=== PATIENT | female | born 1935 | race Caucasian/White ===

== ENCOUNTER 2016-07-15 09:12 | Outpatient (CLI) | payer MEDICARE, BC | END 2016-07-15 09:13 | disposition home or self-care (01) | DX: Z79.899 Other long term (current) drug therapy (principal); I50.9 Heart failure, unspecified ==

== ENCOUNTER 2016-07-22 16:30 | Outpatient (CLI) | payer MEDICARE, BC | END 2016-07-22 16:31 | disposition home or self-care (01) | DX: I10 Essential (primary) hypertension (principal); E78.5 Hyperlipidemia, unspecified; E03.9 Hypothyroidism, unspecified ==

== ENCOUNTER 2016-07-28 | Outpatient (CLI) | payer MEDICARE, BC | END 2016-07-28 13:01 | disposition home or self-care (01) ==

== ENCOUNTER 2016-08-27 13:30 | Outpatient (CLI) | payer MEDICARE, BC | END 2016-08-27 13:31 | disposition home or self-care (01) | DX: I10 Essential (primary) hypertension (principal) ==

== ENCOUNTER 2016-09-02 12:41 | Outpatient (CLI) | payer MEDICARE, BC | END 2016-09-02 12:42 | disposition home or self-care (01) | DX: I50.9 Heart failure, unspecified (principal); I50.30 Unspecified diastolic (congestive) heart failure; I35.8 Other nonrheumatic aortic valve disorders ==

== ENCOUNTER 2016-09-16 13:20 | Outpatient (CLI) | payer MEDICARE, BC | END 2016-09-16 13:21 | disposition home or self-care (01) | DX: I10 Essential (primary) hypertension (principal); Z79.899 Other long term (current) drug therapy ==

== ENCOUNTER 2016-10-12 10:15 | Outpatient (CLI) | payer MEDICARE, BC | END 2016-10-12 10:16 | disposition home or self-care (01) | DX: Z51.5 Encounter for palliative care (principal); R60.0 Localized edema; Z79.01 Long term (current) use of anticoagulants; R53.83 Other fatigue; I50.9 Heart failure, unspecified; M32.9 Systemic lupus erythematosus, unspecified; Z86.73 Personal history of transient ischemic attack (TIA), and cerebral infarction without residual deficits; G40.909 Epilepsy, unspecified, not intractable, without status epilepticus; E66.01 Morbid (severe) obesity due to excess calories; M17.0 Bilateral primary osteoarthritis of knee; K58.9 Irritable bowel syndrome, unspecified; F41.9 Anxiety disorder, unspecified; K44.9 Diaphragmatic hernia without obstruction or gangrene; E03.9 Hypothyroidism, unspecified; Z66 Do not resuscitate ==

== ENCOUNTER 2016-10-27 13:02 | Outpatient (CLI) | payer MEDICARE, BC | END 2016-10-27 13:03 | disposition critical access hospital (66) | DX: R00.0 Tachycardia, unspecified (principal); R03.0 Elevated blood-pressure reading, without diagnosis of hypertension | CPT/HCPCS: A0425; A0429 ==

== ENCOUNTER 2016-10-27 13:20 | Emergency (ER) | payer MEDICARE, BC | END 2016-10-27 15:06 | disposition home or self-care (01) | DX: R00.2 Palpitations (principal); I10 Essential (primary) hypertension; R60.0 Localized edema; M32.9 Systemic lupus erythematosus, unspecified; M06.9 Rheumatoid arthritis, unspecified; E03.9 Hypothyroidism, unspecified; Z79.01 Long term (current) use of anticoagulants; Z79.899 Other long term (current) drug therapy; I50.9 Heart failure, unspecified; Z86.73 Personal history of transient ischemic attack (TIA), and cerebral infarction without residual deficits ==

== ENCOUNTER 2016-11-07 05:55 | Outpatient (CLI) | payer MEDICARE, BC | END 2016-11-07 05:56 | disposition critical access hospital (66) | LOC: EMS 05:55 | PROVIDERS: ATTEND Surgery | DX: R06.02 Shortness of breath (principal) | CPT/HCPCS: A0425; A0429 ==

== ENCOUNTER 2016-11-07 06:10 | Emergency (ER) | payer MEDICARE, BC ==
[2016-11-07 07:10] LABS: BASOPHILS % (AUTO) 0.7 %; EOSINOPHILS # (AUTO) 0.1 10^3/uL (0.0-0.7); EOSINOPHILS % (AUTO) 1.6 %; HCT - HEMATOCRIT 31.6 % (37.0-47.0); HGB - HEMOGLOBIN 10.9 g/dL (12.0-16.0); LYMPHOCYTES # (AUTO) 0.6 10^3/uL (1.5-3.5); LYMPHOCYTES % (AUTO) 10.8 %; MEAN CORPUSCULAR HEMOGLOBIN 31.5 pg (27.0-31.0); MEAN CORPUSCULAR HGB CONC 34.5 g/dL (32.0-36.0); MEAN CORPUSCULAR VOLUME 91.2 fL (81.0-99.0); MEAN PLATELET VOLUME 7.9 fL (7.9-10.8); MONOCYTES # (AUTO) 0.6 10^3/uL (0.0-1.0); MONOCYTES % (AUTO) 11.1 %; NEUTROPHILS # (AUTO) 4.4 10^3/uL (1.5-6.6); NEUTROPHILS % (AUTO) 75.8 %; RED BLOOD COUNT 3.46 10^6/uL (4.20-5.40); RED CELL DISTRIBUTION WIDTH 13.8 % (12.0-15.0); UNCORRECTED WHITE BLOOD COUNT 5.8 x10^3/uL; WHITE BLOOD COUNT 5.8 x10^3/uL (4.8-10.8)
[2016-11-07 07:19] LABS: BILIRUBIN,TOTAL 0.4 mg/dL (0.2-1.0); CALCIUM 8.9 mg/dL (8.5-10.3); CREATININE 1.1 mg/dL (0.4-1.0); POTASSIUM 3.6 mmol/L (3.5-5.0); TOTAL PROTEIN 7.7 g/dL (6.7-8.2)
--- NOTE | 2016-11-07 07:39 | XRAY Preliminary Report ---
Exam: XR Chest 2 View PA/LAT IMPRESSION: Small left lower lobe airspace disease may be due to atelectasis, aspiration, or pneumoni aBarb LESLIE SITE ID: [id number]
[2016-11-07 07:42] LABS: PARTIAL THROMBOPLASTIN TIME 51.1 secs (24.9-33.3)
--- NOTE | 2016-11-07 07:42 | XRAY Report ---
EXAM: CHEST RADIOGRAPHY EXAM DATE: 11/07/2016 07:23 AM. CLINICAL HISTORY: Chest pain, dyspnea. COMPARISON: 06/14/2016. TECHNIQUE: 2 views. FINDINGS: Lungs/Pleura: There is left lower lobe airspace disease. No effusion or pneumothorax. Mediastinum: Mild enlargement of the cardiac silhouette. No definite pulmonary venous congestion. Other: Suspect hiatal hernia. IMPRESSION: Small left lower lobe airspace disease may be due to atelectasis, aspiration, or pneumoni a. [facility] Referring Provider Line: [phone] SITE ID: [id number]
[2016-11-07 07:49] LABS: INR 2.1 (0.8-1.2); PT - PROTHROMBIN TIME 23.3 secs (9.9-12.6)
--- NOTE | 2016-11-07 07:49 | ED Physician Documentation ---
PD HPI DYSPNEA - Stated complaint Stated Complaint: SOA - Chief complaint Chief Complaint: Resp - History obtained from History obtained from: Patient, EMS - History of Present Illness Timing - onset: Enter time (0500), Today Timing - onset during: Sleep Timing - duration: Hours Timing - details: Abrupt onset, Now resolved Inciting event(s): No: Out of meds, URI, Allergic rxn/anaphylaxis, Exercise, Exposure (ie smoke), FB / choking, Immobilization/travel, Emotional event Improved by: Rest, Sitting up Worsened by: Exertion Associated symptoms: Bilateral edema. No: Fever, Cough, Hemoptysis, Wheezing, Chest pain / discomfort, Palpitations, Diaphoresis Similar symptoms before: Diagnosis (CHF) Recently seen: Clinic (Seen in the clinic 3 days ago for a follow up from the recent ED visit.) - Additional information Additional information: 81 y/o female with a history of CHF awoke this morning acutely short of breath and could not get to the bathroom without significant dyspnea. She is now improved an hour after arrival to the ED and she feels this is partly due to getting rid of some water with urination. She reports that she is taking her lasix 20mg in the am and 10 in the afternoon. She reports that if she takes more than this she will itch and gain weight. She has a history of significant dehydration with torsimide and metazalone. She denies illness currently. She did have an episode of palpitations 2 weeks ago and was seen in the ED. She has a hiatal hernia and this episode was attributed to a heavy meal. She also reports the finding that it is difficult to get her shoes on in the morning with her feet being swollen. Review of Systems Constitutional: denies: Fever, Chills Eyes: denies: Decreased vision Ears: denies: Ear pain Nose: denies: Rhinorrhea / runny nose, Congestion Throat: denies: Sore throat Cardiac: reports: Palpitations, Pedal edema. denies: Chest pain / pressure, Calf pain Respiratory: reports: Dyspnea, Cough (on the way in to the hospital) GI: denies: Abdominal Pain, Nausea, Vomiting : reports: Frequency. denies: Dysuria Skin: denies: Rash Musculoskeletal: reports: Extremity swelling. denies: Neck pain, Back pain, Extremity pain Neurologic: denies: Generalized weakness, Focal weakness, Numbness PD PAST MEDICAL HISTORY - Past Medical History Cardiovascular: Hypertension, High cholesterol Respiratory: None, Shortness of breath Neuro: CVA, TIA, Head injury, Seizure disorder Endocrine/Autoimmune: HyPOthyroidism, Systemic lupus erythematosus GI: Hiatal hernia, Diverticulitis, Other : Renal insuffiency Musculoskeletal: Rheumatoid arthritis, Other - Past Surgical History Past Surgical History: Yes General: Cholecystectomy, Colonoscopy - Present Medications Home Medications: Ambulatory Orders Medication Instructions Recorded Confirmed Warfarin [Coumadin] 5 mg PO TUTHSA 06/15/13 10/27/16 Phenobarbital 1.5 tab PO QPM 12/11/13 10/27/16 Levothyroxine [Synthroid] 100 mcg PO QDAC 09/02/15 10/27/16 Warfarin Sodium 7.5 mg PO SUMOWEFR 09/03/15 10/27/16 Albuterol Sulfate [Proair Hfa 2 puffs IH QID #1 [email or web address] 12/02/15 10/27/16 Inhaler] - Allergies Allergies/Adverse Reactions: Allergies Allergy/AdvReac Type Severity Reaction Status Date / Time captopril [From Capoten] Allergy Unknown Verified 11/07/16 06:58 carbamazepine [From Tegretol] Allergy Unknown Verified 11/07/16 06:58 cephalexin monohydrate * Allergy Unknown Verified 11/07/16 06:58 [From Keflex] ciprofloxacin [From Cipro] Allergy Unknown Verified 11/07/16 06:58 clindamycin Allergy Unknown Verified 11/07/16 06:58 codeine Allergy Respiratory Verified 11/07/16 06:58 divalproex sodium Allergy Unknown Verified 11/07/16 06:58 [From Depakote] erythromycin base Allergy Unknown Verified 11/07/16 06:58 felodipine Allergy Unknown Verified 11/07/16 06:58 hydrocodone Allergy Unknown Verified 11/07/16 06:58 hydroxychloroquine sulfate * Allergy Unknown Verified 11/07/16 06:58 [From Plaquenil] levofloxacin [From Levaquin] Allergy Unknown Verified 11/07/16 06:58 methyldopa [From Aldomet] Allergy Unknown Verified 11/07/16 06:58 metronidazole Allergy Unknown Verified 11/07/16 06:58 morphine Allergy Unknown Verified 11/07/16 06:58 Penicillins Allergy Rash Verified 11/07/16 06:58 phenytoin sodium * Allergy Unknown Verified 11/07/16 06:58 [From Dilantin] propranolol HCl * Allergy Unknown Verified 11/07/16 06:58 [From Inderal LA] Sulfa (Sulfonamide Allergy Hives Verified 11/07/16 06:58 Antibiotics) Tetracyclines Allergy Unknown Verified 11/07/16 06:58 caffeine AdvReac Headache Verified 11/07/16 06:58 chocolate flavor AdvReac Cramps Verified 11/07/16 06:58 lactose AdvReac Cramps Verified 11/07/16 06:58 nut - unspecified AdvReac Cramps Verified 11/07/16 06:58 - Social History Does the pt smoke?: No Smoking Status: Never smoker Does the pt drink ETOH?: No Does the pt have substance abuse?: No - Immunizations Immunizations are current?: Yes - POLST Patient has POLST: Yes PD ED PE NORMAL - Vitals Vital signs reviewed: Yes (hypertensive) - General General: No acute distress, Well developed/nourished - HEENT HEENT: Atraumatic, PERRL, EOMI - Neck Neck: Supple, no meningeal sign - Cardiac Cardiac: RRR, No murmur - Respiratory Respiratory: No respiratory distress, Clear bilaterally - Abdomen Abdomen: Soft, Non tender - Back Back: No CVA TTP, No spinal TTP - Derm Derm: Normal color, Warm and dry, No rash - Extremities Extremities: No deformity, Other (There is bilateral pitting edema ) - Neuro Neuro: No motor deficit, No sensory deficit, Normal speech - Psych Psych: Normal mood, Normal affect Results - Vitals Vitals: Vital Signs - 24 hr 11/07/16 11/07/16 06:15 10:02 Temperature 37.2 C Heart Rate 80 72 Respiratory 24 18 Rate Blood Pressure 164/96 H 134/72 H O2 Saturation 99 98 Oxygen O2 Source [] Room air O2 Source Room air - Labs Labs: Laboratory Tests 11/07/16 11/07/16 11/07/16 06:45 06:45 06:45 WBC 5.8 RBC 3.46 L Hgb 10.9 L Hct 31.6 L MCV 91.2 MCH 31.5 H MCHC 34.5 RDW 13.8 Plt Count 134 MPV 7.9 Neut # 4.4 Lymph # 0.6 L Harper # 0.6 Eos # 0.1 Baso # 0.0 Absolute Nucleated RBC 0.00 Nucleated RBCs 0.0 PT 23.3 H INR 2.1 H APTT 51.1 H Sodium 138 Potassium 3.6 Chloride 103 Carbon Dioxide 26 Anion Gap 9.0 BUN 43 H Creatinine 1.1 H Estimated GFR (MDRD) 47 L Glucose 101 H Calcium 8.9 Total Bilirubin 0.4 AST 20 ALT 14 Alkaline Phosphatase 92 Troponin I B-Natriuretic Peptide Total Protein 7.7 Albumin 3.9 Globulin 3.8 Albumin/Globulin Ratio 1.0 Lipase 32 Urine Color Urine Clarity Urine pH Ur Specific Ethel Urine Protein Urine Glucose (UA) Urine Ketones Urine Occult Blood Urine Nitrite Urine Bilirubin Urine Urobilinogen Ur Leukocyte Esterase Urine RBC Urine WBC Ur Squamous Epith Cells Urine Bacteria Ur Microscopic Review Urine Culture Comments 11/07/16 11/07/16 11/07/16 06:45 06:45 08:15 WBC RBC Hgb Hct MCV MCH MCHC RDW Plt Count MPV Neut # Lymph # Harper # Eos # Baso # Absolute Nucleated RBC Nucleated RBCs PT INR APTT Sodium Potassium Chloride Carbon Dioxide Anion Gap BUN Creatinine Estimated GFR (MDRD) Glucose Calcium Total Bilirubin AST ALT Alkaline Phosphatase Troponin I < 0.04 B-Natriuretic Peptide 90 Total Protein Albumin Globulin Albumin/Globulin Ratio Lipase Urine Color YELLOW Urine Clarity CLEAR Urine pH 7.0 Ur Specific Ethel 1.010 Urine Protein 30 H Urine Glucose (UA) NEGATIVE Urine Ketones NEGATIVE Urine Occult Blood TRACE-LYSE Urine Nitrite NEGATIVE Urine Bilirubin NEGATIVE Urine Urobilinogen 0.2 (NORMAL) Ur Leukocyte Esterase NEGATIVE Urine RBC 0-5 Urine WBC 0-3 Ur Squamous Epith Cells FEW Squamous Urine Bacteria Few Ur Microscopic Review INDICATED Urine Culture Comments NOT INDICATED - Rads (name of study) view chest Radiology: Prelim report reviewed (Impression: Small left lower lobe airspace disease may be due to atelectasis, aspiration, or pneumonia.), EMP read indepedently, See rad report Procedures - IVC sono (time) 0750 Bedside IVC sono: IVC measures (cm) (2.17), IVC collapsed c insp (cm) (1.34), Euvolemia PD MEDICAL DECISION MAKING - ED course Complexity details: reviewed old records, reviewed results, re-evaluated patient , considered differential, d/w patient ED course: 81 y/o female with a history of fluid retention has developed acute shortness of breath early this morning that is now resolved. She is euvolemic on interrogation of the IVC and her BNP is 90. Her CXR shows some atelectasis in the left base and I found this hard to find on the X-ray. She does not present like a pneumonia and here in the ED without intervention she has resolved her symptoms and does the road test well in the department. Departure - Departure Disposition: 01 Home, Self Care Clinical Impression: Dyspnea Qualifiers: Dyspnea type: dyspnea on exertion Qualified Code(s): R06.09 - Other forms of dyspnea Instructions: ED Dyspnea Shortness of Breath Follow-Up: Tanya Tillman MD [Primary Care Provider] - Comments: Continue your current medications as previously.
[2016-11-07 08:36] LABS: BILIRUBIN,URINE NEGATIVE (NEGATIVE)
[2016-11-07 08:44] LABS: UA w/ MICROSCOPIC CHARGE YES
[2016-11-07 09:13] LABS: UR CULTURE IF IND NOT INDICATED; WBC,URINE 0-3 /HPF (0-5)
[2016-11-07] MEDS ORDERED: ACETAMINOPHEN 325 MG TABLET PO STA (09:55)
[2016-11-07] MEDS ORDERED: ACETAMINOPHEN 325 MG TABLET PO ONE (09:57)
[2016-11-07 11:05] VITALS: BP 171/64
== END 2016-11-07 11:20 | disposition home or self-care (01) ==
LOC: EDUNIT# → ED 06:10
DX: R06.09 Other forms of dyspnea (principal); R60.0 Localized edema; K44.9 Diaphragmatic hernia without obstruction or gangrene; I10 Essential (primary) hypertension; Z79.01 Long term (current) use of anticoagulants; Z86.73 Personal history of transient ischemic attack (TIA), and cerebral infarction without residual deficits; M32.9 Systemic lupus erythematosus, unspecified; M06.9 Rheumatoid arthritis, unspecified; E03.9 Hypothyroidism, unspecified
CPT/HCPCS: 36415; 71020; 80053; 81001; 83690; 83880; 84484; 85025; 85610; 85730; 93005; 93010; 99284; A9270; 81003; 87086

== ENCOUNTER 2016-11-23 13:00 | Outpatient (CLI) | payer MEDICARE, BC ==
--- NOTE | 2016-11-25 00:11 | CONSULTATION NOTE ---
DATE OF CONSULTATION: 11/23/2016 00:00:00 TIME OF VISIT: 2803-4096. REQUESTING PROVIDER: Tanya Tillman MD. TOPIC: Followup palliative care consult. Thank you, Dr. Tillman, for asking the palliative care consult service to be involved in the care of y our patient. I am asked to provide support regarding goals of care, symptom management, and transitio ns of care. 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 In the con text of her autoimmune disease, she has lupus and multiple drug allergies, irritable bowel syndrome. She also struggles fairly dramatically with fatigue. She does feel tired most of the time and this rosas s been increasing in severity. The patient's most pressing symptom over the last several weeks has been the patient's difficulty wit h feelings of tachycardia. She reports that the episodes are increasing. She describes them as palpit ations, that her heart rate increases. This is most notable as far as pattern after eating and luncht hanane. It does not occur after breakfast. She does have a hiatal hernia. She has tried decreasing her i ntake. She does eat a small lunch, but she has had some episodes at night time that have awakened her . Again, no pain. Discussed sensation in her chest and some episodic shortness of breath. She has bee n to the ED for this with workup, but does not show any etiology and her rhythm was normal sinus. The patient has been quite resistant to cardiology referral or consideration of other medications, thoug h with the increase in episodes of lasting 5-10 minutes 1-2 times a day, she is more likely to consid er this during our visit. She does complain of lower extremity edema. Currently, she is taking 20 mg of Lasix in the a.m. and 1 0 in the p.m. She continues to have compromised renal status. Her last labs available of note are fro m her ED visit on 10/27 with her BUN 44, creatinine 1.3, GFR 39. She also complains of increased right knee pain and swelling, has been getting wraps in physical scientist apy, has continued to have functional decline. She has lost mobility. She is not able to tolerate janett ng up for greater than a few minutes. She needs to sit to be able to do any of her ADLs. She does use a walker to walk short distances, but is tolerating this less and less. She has tried the bracing fr om physical therapy and this was not effective. SYMPTOM BURDEN: Complains of right knee pain, exacerbated with increased swelling. Does take occasion al Tylenol with some relief. She is not looking at further medications regarding this. Her most prese nting symptom continues to be the tiredness and fatigue. She is only able to tolerate being up for br eakfast and lunch. She needs frequent rest periods. Is unable to tolerate standing. She does now have bathing assist once a week. At this time, she is doing just spit baths. She does wear out quite quic kly. She continues to deny depressive symptoms. She does have some intermittent anxiety. This is attr ibuted to her episodes of "palpitations." She does perceive her quality of life as currently poor. CURRENT MEDICATIONS Include 1. Lasix 20 mg in the a.m., 10 mg p.m. 2. Warfarin as dictated by her PCP. 3. Phenobarbital 97.2 mg tabs 1-1/2 tabs at bedtime. 4. Tylenol 500 mg 1-2 tabs p.r.n. 5. Flonase 1-2 sprays daily as needed. 6. Vitamin C 500 mg daily. 7. Levothyroxine 100 mcg daily. CODE STATUS: THE PATIENT HAS A POLST FORM, DO NOT RESUSCITATE, COMFORT MEASURES ONLY. HER DURABLE POW ER OF SUPER[employer] IS HER SISTER, BRIAN HANEY, HER PHONE NUMBER IS [phone], THOUGH SHE HERSELF HAS HEALTH PROBLEMS. BRIEF SOCIAL HISTORY: The patient has been a resident of [facility] for over 15 years. She is quite isol ated. She tends to be in introvert. She does not like changes and likes things noncomplicated. She fi nds leaving the facility as quite distressing. REVIEW OF SYSTEMS ENT: She wears glasses. Continues to have intermittent sinus problems with stuffiness. She does use h er Flonase intermittently. RESPIRATORY: Shortness of breath with any exertion. No cough, no increase in this. GASTROINTESTINAL: Denies trouble with constipation or diarrhea currently. GENITOURINARY: No further problems. Is voiding without difficulty. No signs or symptoms of infection. MUSCULOSKELETAL: As noted, she has some increase in overall weakness, stiffness, and ambulation, even for short distances. This is becoming more problematic and this is only in her room. She is unable t o tolerate being up for activities. She has been able to get down to the dining brown with her old wal ker with frequent sitting for rest periods a couple of times a day. INTEGUMENTARY: Continues to complain of a healing lower lip. NEUROLOGIC: She does have short-term memory issues. PSYCHIATRIC: Does feel overwhelmed with her current ongoing problems, though she denies persistent an d pervasive depression or suicidality. She does have some anxiety. ENDOCRINE: She does have hypothyroidism. HEMATOLOGIC/IMMUNOLOGIC: No recent infections. PHYSICAL EXAMINATION GENERAL: The patient remains quite pale, does appear fatigued appearance. Her voice is monotone and s oft. EYES: Eyes normal on inspection. ENT: Mucous membranes are moist. She does have peeling lower lip, does not appear irritated or infect ed. NECK: Quite thickened. Trachea midline. RESPIRATORY: Breath sounds are clear. No crackles. CARDIOVASCULAR: Her pulse is 74 and regular. She does perceive it as somewhat "just coming off an epi sode." Blood pressure 144/84, temperature 96, O2 96% on room air. ABDOMEN: Quite obese, rounded and soft. SKIN: Did check her skin folds. No signs or symptoms of candidiasis. She does have a fairly large lindsay nus. EXTREMITIES: She does have some noted extremity edema, though she is quite morbidly obese at 253.5 po unds. She does report they have been doing some massage, so this has been better. She has not had any further weeping noted. PALLIATIVE CARE DISCUSSION: She continues to be quite discouraged with her current quality of life. D oes continue to dislike change, feels somewhat anxious with the cardiac stuff, understanding though t hat she is somewhat fragile, though not acutely declining. She has currently accepted some bathing as sistance from a private caregiver. She does have support from her niece with shopping. She feels like she is ready to go, but wants to remain as independent as possible. She does not perceive herself as wanting to be in a shelter or a more supportive environment as far as when her care needs incre ase. In the context of this, we did discuss the need for a wheelchair to be able to pace her activity , to increase her safety and be able to tolerate meeting her care needs within her apartment and [facility]. Given our conversation, as far as looking at her anxiety and her episodes, she is willing to tr y some medication. She remains quite apprehensive because she does tend to have multiple side effects to medications. IMPRESSION: This is an 81-year-old woman with ongoing comorbidities, most prominent is her symptom of fatigue. Her most concerning symptom for her as far as increasing anxiety are these episodes of palp itations. She is willing to try some medication intervention, does not want to go to a template worker. Did pursue consult with her PCP and recommendations. Will use a very small dose of metoprolol and adolph luate her response. She has no overt signs of CHF today and her renal status remains quite fragile. RECOMMENDATIONS/COUNSELING DONE 1. Palpitations, most likely attributed to atrial fibrillation. I do feel like she is properly antico agulated. Is going to try some metoprolol. Will try metoprolol tartrate, small dose, short-acting, to see how she tolerates this. We reviewed the benefits and balances of this and confirmed with her PCP . 2. Fatigue, multifactorial in origin. The patient does have underlying anemia, multiple comorbidities , ongoing fragile renal status. She is becoming less functional and concern for her to be able to be independent in her apartment with her increasing difficulty managing her lower extremity edema, as we ll as her pain and her severe DJD of her right knee. [id number]: We will go ahead and initiate a [id number] for a bariatric wheelchair. Currently, is using her rolling walker and uses frequent seating for this when she becomes fatigued or her pain bec omes overwhelming. She does live in an assisted living facility. Most likely, she would be able to ma nage the mobility independently. She also has staff available. She does have an elevator in the syste m. She currently does struggle with her ADLs. She does need to sit frequently. She is getting assista nce with bathing. This would give her access to be able to do some meal prep at her little sink and r efrigerator, as well as be able to be seated to manage her dressing and her self-care as far as spit baths. The patient is willing to safely use and would be able to work with Physical Therapy in mobili ty training. She is having increasing difficulty being able to manage just with her walker. It is a r olling walker. She sits frequently and this does put her at high risk for falls. Her knee is quite un stable. Would recommend this equipment for lifetime use. The patient is about 5 feet 2 inches and 253 pounds and would need a bariatric wheelchair. TIME SPENT: 45 minutes with greater than 50% of this done in counseling and coordination of care, munira ghing benefits and burdens of trying new medication for her palpitations as these are impacting her q uality of life, as well as anticipatory guidance given her ongoing functional decline and preparing t o obtain a bariatric wheelchair. JOB #: [id number] EXT JOB #:[id number]
== END 2016-11-23 13:01 | disposition home or self-care (01) ==
LOC: PC 13:00
PROVIDERS: ATTEND Nurse Practitioner Adult Health
DX: Z51.5 Encounter for palliative care (principal); R00.2 Palpitations; R53.83 Other fatigue; D64.9 Anemia, unspecified; R60.0 Localized edema; I50.9 Heart failure, unspecified; Z86.73 Personal history of transient ischemic attack (TIA), and cerebral infarction without residual deficits; G40.909 Epilepsy, unspecified, not intractable, without status epilepticus; E66.01 Morbid (severe) obesity due to excess calories; M17.0 Bilateral primary osteoarthritis of knee; M32.9 Systemic lupus erythematosus, unspecified; K58.9 Irritable bowel syndrome, unspecified; K44.9 Diaphragmatic hernia without obstruction or gangrene; R06.02 Shortness of breath; F41.9 Anxiety disorder, unspecified; Z79.01 Long term (current) use of anticoagulants; Z66 Do not resuscitate; E03.9 Hypothyroidism, unspecified

== ENCOUNTER 2016-12-29 16:05 | Outpatient (CLI) | payer MEDICARE, BC | END 2016-12-29 16:06 | disposition critical access hospital (66) | LOC: EMS 16:05 | PROVIDERS: ATTEND Surgery | DX: R47.81 Slurred speech (principal); R29.810 Facial weakness; R53.1 Weakness | CPT/HCPCS: A0425; A0427 ==

== ENCOUNTER 2016-12-29 16:19 | Emergency (ER) | payer MEDICARE, BC ==
--- NOTE | 2016-12-29 16:35 | ED Physician Documentation ---
PD HPI FOCAL NEURO - Stated complaint Stated Complaint: POSS TIA - Chief complaint Chief Complaint: Neuro - History obtained from History obtained from: Patient, EMS - History of Present Illness Timing - onset: How many hours ago (1) Timing - duration: Hours (1) Timing - details: Abrupt onset Severity of deficit: Severe Weakness: Face, Arm, Hand, Leg, Foot, Right Numbness: Face, Arm, Hand, Leg, Foot, Right Associated symptoms: No: Headache, Nausea / vomiting, Seizure, Syncope, Fall, Head injury, Chest pain Contributing factors: positive: Anticoagulated (warfarin) Baseline status: positive: A&OX3, ambulatory, indep Similar symptoms before: Diagnosis (stroke) Recently seen: Not recently seen Review of Systems Unable to obtain: AMS PD PAST MEDICAL HISTORY - Past Medical History Past Medical History: Yes Cardiovascular: Hypertension, High cholesterol Respiratory: None, Shortness of breath Neuro: CVA, TIA, Head injury, Seizure disorder Endocrine/Autoimmune: HyPOthyroidism, Systemic lupus erythematosus GI: Hiatal hernia, Diverticulitis, Other : Renal insuffiency Musculoskeletal: Rheumatoid arthritis, Other - Past Surgical History Past Surgical History: Yes General: Cholecystectomy, Colonoscopy - Present Medications Home Medications: Ambulatory Orders Medication Instructions Recorded Confirmed Warfarin [Coumadin] 5 mg PO TUTHSA 06/15/13 10/27/16 Phenobarbital 1.5 tab PO QPM 12/11/13 10/27/16 Levothyroxine [Synthroid] 100 mcg PO QDAC 09/02/15 10/27/16 Warfarin Sodium 7.5 mg PO SUMOWEFR 09/03/15 10/27/16 Albuterol Sulfate [Proair Hfa 2 puffs IH QID #1 hfa.aer.ad 12/02/15 10/27/16 Inhaler] - Allergies Allergies/Adverse Reactions: Allergies Allergy/AdvReac Type Severity Reaction Status Date / Time captopril [From Capoten] Allergy Unknown Verified 11/07/16 06:58 carbamazepine [From Tegretol] Allergy Unknown Verified 11/07/16 06:58 cephalexin monohydrate * Allergy Unknown Verified 11/07/16 06:58 [From Keflex] ciprofloxacin [From Cipro] Allergy Unknown Verified 11/07/16 06:58 clindamycin Allergy Unknown Verified 11/07/16 06:58 codeine Allergy Respiratory Verified 11/07/16 06:58 divalproex sodium Allergy Unknown Verified 11/07/16 06:58 [From Depakote] erythromycin base Allergy Unknown Verified 11/07/16 06:58 felodipine Allergy Unknown Verified 11/07/16 06:58 hydrocodone Allergy Unknown Verified 11/07/16 06:58 hydroxychloroquine sulfate * Allergy Unknown Verified 11/07/16 06:58 [From Plaquenil] levofloxacin [From Levaquin] Allergy Unknown Verified 11/07/16 06:58 methyldopa [From Aldomet] Allergy Unknown Verified 11/07/16 06:58 metronidazole Allergy Unknown Verified 11/07/16 06:58 morphine Allergy Unknown Verified 11/07/16 06:58 Penicillins Allergy Rash Verified 11/07/16 06:58 phenytoin sodium * Allergy Unknown Verified 11/07/16 06:58 [From Dilantin] propranolol HCl * Allergy Unknown Verified 11/07/16 06:58 [From Inderal LA] Sulfa (Sulfonamide Allergy Hives Verified 11/07/16 06:58 Antibiotics) Tetracyclines Allergy Unknown Verified 11/07/16 06:58 caffeine AdvReac Headache Verified 11/07/16 06:58 chocolate flavor AdvReac Cramps Verified 11/07/16 06:58 lactose AdvReac Cramps Verified 11/07/16 06:58 nut - unspecified AdvReac Cramps Verified 11/07/16 06:58 - Social History Does the pt smoke?: No Smoking Status: Never smoker Does the pt drink ETOH?: No Does the pt have substance abuse?: No - Immunizations Immunizations are current?: Yes - POLST Patient has POLST: Yes PD ED PE NORMAL - Vitals Vital signs reviewed: Yes - General General: No acute distress, Other (alert) - HEENT HEENT: PERRL, Moist mucous membranes - Neck Neck: Supple, no meningeal sign - Cardiac Cardiac: RRR, Strong equal pulses - Respiratory Respiratory: No respiratory distress, Clear bilaterally - Abdomen Abdomen: Soft, Non tender - Back Back: No spinal TTP - Derm Derm: Warm and dry - Extremities Extremities: No calf tenderness / cord - Neuro Neuro: Other (alert) NIHSS - Time Time: 16:30 - Level of Consciousness Level of consciousness: (0) Alert, Keenly responsive LOC Questions: (1) Answers one Q correctly LOC Commands: (0) Performs both correctly - Gaze Best Gaze: (0) Normal - Visual Visual: (0) No loss - Facial Palsy Facial Palsy: (3) Complete paralysis - Motor Arms (both separate) Motor Arm (right): (4) No movement Motor Arm (left): (0) No drift - Motor Legs (both separate) Motor Leg (right): (4) No movement Motor Leg (left): (0) No drift - Limb Ataxia Limb Ataxia: (0) Absent - Sensory Sensory: (2) Celiwt-jb-pjylg loss - Best Language Best Language: (0) No aphasia - Dysarthria Dysarthria: (2) Severe dysarthria - Extinction and Inattention (formally neg Extinction and inattention: (0) No abnormality - Total Score/Results Total Score/Result: 16 Results - Vitals Vitals: Vital Signs - 24 hr 12/29/16 12/29/16 12/29/16 16:20 17:00 17:30 Temperature 36.6 C Heart Rate 72 63 Respiratory 16 17 Rate Blood Pressure 192/100 H 125/49 L O2 Saturation 97 96 12/29/16 12/29/16 17:49 18:36 Temperature Heart Rate 72 63 Respiratory 16 Rate Blood Pressure 114/42 L 128/54 L O2 Saturation 97 98 Oxygen O2 Source [] Room air O2 Source Room air - Labs Labs: Laboratory Tests 12/29/16 12/29/16 12/29/16 16:55 16:58 17:28 WBC 3.7 L RBC 3.66 L Hgb 11.2 L Hct 33.2 L MCV 90.7 MCH 30.6 MCHC 33.7 RDW 13.7 Plt Count 146 MPV 7.5 L Neut # 2.3 Lymph # 0.8 L Seward # 0.4 Eos # 0.1 Baso # 0.0 Absolute Nucleated RBC 0.00 Nucleated RBCs 0.1 Whole Blood INR 2.2 H Urine Color YELLOW Urine Clarity CLEAR Urine pH 6.5 Ur Specific Saxon 1.015 Urine Protein 30 H Urine Glucose (UA) NEGATIVE Urine Ketones NEGATIVE Urine Occult Blood SMALL H Urine Nitrite NEGATIVE Urine Bilirubin NEGATIVE Urine Urobilinogen 0.2 (NORMAL) Ur Leukocyte Esterase NEGATIVE Urine RBC 0-5 Urine WBC 0-3 Ur Squamous Epith Cells RARE Squamous Urine Bacteria Rare Ur Microscopic Review INDICATED Urine Culture Comments NOT INDICATED - Rads (name of study) Head CT Radiology: Prelim report reviewed, EMP read contemporaneously, See rad report ( Acute left basal ganglia intraparenchymal hemorrhage measuring 3.1 cm suspicious for a hypertensive hemorrhage. No significant mass effect. Mild cerebral atrophy with nonspecific white matter disease, likely microangiopathy. ) PD MEDICAL DECISION MAKING - ED course Complexity details: reviewed results, re-evaluated patient, considered differential, d/w patient, d/w family (brother in law), d/w email production consultant ([phone] - Dr. Lopez (neurology) at [facility]. who recommends transfer to neuro ICU at [facility]. ) ED course: Patient is an 81 yo F with an acute intracranial hemorrhage and R sided paralysis. Severe dysarthria. Started on kcentra for warfarin induced coagulopathy and nicardipine gtt for hypertension. Will transfer to [facility] for further care. This document was made in part using voice recognition software. While efforts are made to proofread this document, sound alike and grammatical errors may occur. Departure - Departure Disposition: 02 Transfer Acute Care Hosp Clinical Impression: Intracerebral bleed Qualifiers: Intracerebral hemorrhage etiology: nontraumatic Cerebral hemorrhage location: cerebral hemisphere, unspecified portion Laterality: left Qualified Code(s): I61.2 - Nontraumatic intracerebral hemorrhage in hemisphere, unspecified Hypertension Qualifiers: Hypertension type: essential hypertension Qualified Code(s): I10 - Essential ( primary) hypertension Condition: Serious Discharge Date/Time: 12/29/16 18:17
--- NOTE | 2016-12-29 16:51 | CT Report ---
EXAM: CT HEAD EXAM DATE: 12/29/2016 04:33 PM. CLINICAL HISTORY: Right sided weakness, dysarthria. COMPARISON: Head CT 01/07/2015. TECHNIQUE: Multiaxial CT images were obtained from the foramen magnum to the vertex. IV contrast: Non e. Reformats: Coronal. In accordance with CT protocol optimization, one or more of the following dose reduction techniques w ere utilized for this exam: automated exposure control, adjustment of mA and/or KV based on patient s ize, or use of iterative reconstructive technique. FINDINGS: Parenchyma: There is mild cerebral atrophy with a intra-axial high density collection measuring 3.1 x 2.0 cm. This is centered at the level of the left basal ganglia along the lentiform nucleus. No evid ence of midline shift. Separate moderate low-density in the deep white matter without mass effect. Extraaxial Spaces: Cerebral atrophy. Ventricles: Normal in size and position. Sinuses: Imaged paranasal sinuses, orbits, and mastoids show no significant abnormality. Bones: Right temporomandibular joint osteoarthritis. Other: None. IMPRESSION: 1. Acute left basal ganglia intraparenchymal hemorrhage measuring 3.1 cm suspicious for a hypertensiv e hemorrhage. No significant mass effect. 2. Mild cerebral atrophy with nonspecific white matter disease, likely microangiopathy. RADIA CRITICAL RESULT: The above findings were discussed with Hilliard by Dr. Rj Hardy at 16:45 h rs on 12/29/16. Referring Provider Line: [phone] SITE ID: [id number]
[2016-12-29] MEDS ORDERED: PROTHROMBIN COMPLEX CONC 500 UNIT VIAL IVP STA (17:02)
[2016-12-29] MEDS ORDERED: SODIUM CHLORIDE 0.9% 1,000 ML IV ONE (17:03)
[2016-12-29] MEDS ORDERED: LORazepam 2 MG/ML SYRINGE IVP STA (17:08)
[2016-12-29 17:11] LABS: BASOPHILS % (AUTO) 1.2 %; EOSINOPHILS # (AUTO) 0.1 10^3/uL (0.0-0.7); EOSINOPHILS % (AUTO) 2.6 %; HCT - HEMATOCRIT 33.2 % (37.0-47.0); HGB - HEMOGLOBIN 11.2 g/dL (12.0-16.0); LYMPHOCYTES # (AUTO) 0.8 10^3/uL (1.5-3.5); MEAN CORPUSCULAR HEMOGLOBIN 30.6 pg (27.0-31.0); MEAN CORPUSCULAR HGB CONC 33.7 g/dL (32.0-36.0); MEAN CORPUSCULAR VOLUME 90.7 fL (81.0-99.0); MEAN PLATELET VOLUME 7.5 fL (7.9-10.8); MONOCYTES # (AUTO) 0.4 10^3/uL (0.0-1.0); MONOCYTES % (AUTO) 11.9 %; NEUTROPHILS # (AUTO) 2.3 10^3/uL (1.5-6.6); NEUTROPHILS % (AUTO) 62.3 %; NUCLEATED RED BLOOD CELLS AUTO 0.1 /100WBC; RED BLOOD COUNT 3.66 10^6/uL (4.20-5.40); RED CELL DISTRIBUTION WIDTH 13.7 % (12.0-15.0); UNCORRECTED WHITE BLOOD COUNT 3.7 x10^3/uL; WHITE BLOOD COUNT 3.7 x10^3/uL (4.8-10.8)
[2016-12-29] MEDS ORDERED: LORazepam 2 MG/ML SYRINGE ONE (17:33)
[2016-12-29 17:59] LABS: BILIRUBIN,URINE NEGATIVE (NEGATIVE); PH,URINE 6.5 PH (5.0-7.5)
[2016-12-29 18:01] LABS: UA w/ MICROSCOPIC CHARGE YES
[2016-12-29 18:17] LABS: WBC,URINE 0-3 /HPF (0-5)
[2016-12-29 18:18] LABS: UR CULTURE IF IND NOT INDICATED
[2016-12-29 18:36] VITALS: BP 128/54
== END 2016-12-29 18:17 | disposition short-term general hospital (02) ==
LOC: EDUNIT# → ED 16:19
DX: I61.2 Nontraumatic intracerebral hemorrhage in hemisphere, unspecified (principal); I10 Essential (primary) hypertension; G83.9 Paralytic syndrome, unspecified; R47.1 Dysarthria and anarthria; E03.9 Hypothyroidism, unspecified; M32.9 Systemic lupus erythematosus, unspecified; Z79.01 Long term (current) use of anticoagulants; Z86.73 Personal history of transient ischemic attack (TIA), and cerebral infarction without residual deficits; Z86.69 Personal history of other diseases of the nervous system and sense organs
CPT/HCPCS: 36415; 51702; 70450; 81001; 85025; 85610; 93005; 96374; 96375; 99285; J2060; 81003; 85730; 87086

== ENCOUNTER 2017-03-04 11:30 | Outpatient (CLI) | payer MEDICARE, BC ==
--- NOTE | 2017-03-04 13:43 | PROVIDER PROGRESS NOTE ---
Palliative Care Follow Up - Referral Referring Provider: Dr. Tanya Tillman Time of Visit: 11:30-12:30 pm Referral setting: Long Term Facility Referral Reason: Hemiplegia right non dominant side - Information Sources Records Reviewed: RN notes reviewed, Old records reviewed History obtained from: Other (dependent on records) Exam limitations: Clinical condition (patient with dysarthia; some yes/no and few words; difficult to communicate) - History of Present Illness Update Brief HPI Update: This is a 81-year-old woman with long-term multiple chronic health problems including, but not limited to chronic heart failure, lower extremity edema, lupus, history of past stroke, seizure disorder, thyroid disease, morbid obesity and 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 In the context of her autoimmune disease, she has lupus, multiple drug allergies, irritable bowel syndrome, and struggled mcc with fatigue. Unfortunately on 12/29/2016, she had a left intracranial hemorrhage. This was with sudden onset of right-sided weakness and facial droop. She was awaiting the bus at her assisted living facility [facility]. She was seen at [facility] emergency department and then transferred to [facility]. She had a difficult course with extension of her intracranial hemorrhage and difficulty with controlling her blood pressure and diagnosed with acute on chronic renal failure. She was discharged to [facility] in [place]. She had another acute stay, the [facility], from 01/28/17-02/02/17 with what was thought to be recurrent embolic CVA. She was also diagnosed at that time with a urinary tract infection. Her deficits from her recent hemorrhagic CVA, as well as her multi-embolic acute CVA, have resulted in marked disabilities with dense hemiparesis on the right, expressive aphasia and dysphagia. She is very difficult to understand there has been some difficulty in clarifying her goals and was recently started on citalopram 10 mg daily to address her underlying depression. 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 The patient currently is newly a resident at [facility], she was admitted on 02/23/2017. She is currently fair for senior care care, but will be receiving rehabilitation therapies through her part B benefit. I found her sitting up in her wheelchair, which is poorly fitted to her, she is a full corky lift at this time for transfers. She has no movement or response when moving her right upper extremity, some movement in her right lower leg but unable to independently reposition her foot. She does appear to recognize me, she is trying to speak to me, it is very difficult with her dysarthria. She is aware she is on an antidepressant at present, she could not describe to me yes or no if she was feeling depressed. She reports she is sleeping she has no appetite, she is uncomfortable in the chair, but is able unable to identify specific location of pain. She is shifting quite frequently in the chair and grimacing. She does have a history of headache, when asked about this she did agree. Social History - Living Situation Living arrangement: custodial (at [facility], [facility] setting since 02/23) Support System: Sister originally identified as DPOA, herself has health problems. Her MOLLY Musa Cueva is currently identified as DPOA. Their daughter Fiordaliza has been also helping with the logistics of managing her increase care needs and fianancial affairs. Medications/Allergies - Medications Home Medications: Ambulatory Orders Medication Instructions Recorded Confirmed Phenobarbital 64.8 mg PO QPM 12/11/13 10/27/16 Albuterol Sulf [Ventolin Hfa 2 puffs INH Q4HR PRN 03/04/17 03/04/17 Inhaler] Ascorbic Acid [Vitamin C] 500 mg PO DAILY 03/04/17 03/04/17 Aspirin [Aspirin EC] 81 mg PO DAILY 03/04/17 03/04/17 Atorvastatin Calcium 40 mg PO DAILY 03/04/17 03/04/17 Bisacodyl 1 - 2 tab PO DAILY PRN 03/04/17 03/04/17 Bisacodyl Supp [Dulcolax Supp] 1 supp [place] DAILY PRN 03/04/17 03/04/17 Citalopram [CeleXA] 10 mg PO DAILY 03/04/17 03/04/17 Ferrous Gluconate 324 mg PO DAILY 03/04/17 03/04/17 Fluticasone [Flonase] 1 spray ALFONSO BID 03/04/17 03/04/17 LORazepam [Ativan] 0.5 mg PO Q4HR PRN 03/04/17 03/04/17 Levothyroxine Sodium 100 mcg PO DAILY 03/04/17 03/04/17 Losartan Potassium 50 mg PO BID 03/04/17 03/04/17 Melatonin 3 mg PO QPM PRN 03/04/17 03/04/17 Metoprolol Tartrate 50 mg PO BID 03/04/17 03/04/17 Mineral Oil/Petrolatum,White 1 applic OP QPM 03/04/17 03/04/17 [Artificial Tears Eye Ointment] Nitroglycerin [Nitrostat] 0.4 mg PO Q8HR PRN 03/04/17 03/04/17 Polyvinyl Alcohol [Artificial 1 drops OP DAILY 03/04/17 03/04/17 Tears] Ranitidine HCl [Acid Control] 150 mg PO BID 03/04/17 03/04/17 Sennosides [Senna] 17.2 mg PO DAILY 03/04/17 03/04/17 traZODone [Desyrel] 50 mg PO QPM 03/04/17 03/04/17 - Allergies Allergies/Adverse Reactions: Allergies Allergy/AdvReac Type Severity Reaction Status Date / Time captopril [From Capoten] Allergy Unknown Verified 11/07/16 06:58 carbamazepine [From Tegretol] Allergy Unknown Verified 11/07/16 06:58 cephalexin monohydrate * Allergy Unknown Verified 11/07/16 06:58 [From Keflex] ciprofloxacin [From Cipro] Allergy Unknown Verified 11/07/16 06:58 clindamycin Allergy Unknown Verified 11/07/16 06:58 codeine Allergy Respiratory Verified 11/07/16 06:58 divalproex sodium Allergy Unknown Verified 11/07/16 06:58 [From Depakote] erythromycin base Allergy Unknown Verified 11/07/16 06:58 felodipine Allergy Unknown Verified 11/07/16 06:58 hydrocodone Allergy Unknown Verified 11/07/16 06:58 hydroxychloroquine sulfate * Allergy Unknown Verified 11/07/16 06:58 [From Plaquenil] levofloxacin [From Levaquin] Allergy Unknown Verified 11/07/16 06:58 methyldopa [From Aldomet] Allergy Unknown Verified 11/07/16 06:58 metronidazole Allergy Unknown Verified 11/07/16 06:58 morphine Allergy Unknown Verified 11/07/16 06:58 Penicillins Allergy Rash Verified 11/07/16 06:58 phenytoin sodium * Allergy Unknown Verified 11/07/16 06:58 [From Dilantin] propranolol HCl * Allergy Unknown Verified 11/07/16 06:58 [From Inderal LA] Sulfa (Sulfonamide Allergy Hives Verified 11/07/16 06:58 Antibiotics) Tetracyclines Allergy Unknown Verified 11/07/16 06:58 caffeine AdvReac Headache Verified 11/07/16 06:58 chocolate flavor AdvReac Cramps Verified 11/07/16 06:58 lactose AdvReac Cramps Verified 11/07/16 06:58 nut - unspecified AdvReac Cramps Verified 11/07/16 06:58 Review of Systems - Constitutional Constitutional: reports: Fatigue, Weakness, Poor appetite, Weight loss (patient at 246; previous to stroke was around 258) - Eyes Eyes: reports: Other (unclear has right facial drop) - Ears, Nose & Throat Ears, Nose & Throat: reports: Nasal congestion (history-still on flonase), Other (unknown;) - Cardiovascular Cariovascular: reports: Irregular heart rate, Decr. exercise tolerance - Respiratory Respiratory: reports: SOB with exertion. denies: Cough, SOB at rest - Gastrointestinal Gastrointestinal: reports: Reflux/heartburn, Poor appetite, Other (patient unable to tell me if having bowel problems; now incontinent). denies: Abdominal pain - Genitourinary Genitourinary: reports: Incontinence - Musculoskeletal Musculoskeletal: reports: Stiffness, Limited range of motion (right upper ext. without movement/flacid; RLE minimal on command;), Muscle weakness, Other ( require corky lift for transfers) - Integumentary Integumentary: reports: Dryness - Neurological Neurological: reports: General weakness, Headache, Memory problems, Slurred speech (unable to discern speech or level of cognitive understanding; family feels like she is "all there") - Psychiatric Psychiatric: reports: Depression (newly started on antidepressant; has been very resistant to this is the past), Anxiety (staff report does "wave" them away frequently) - Endocrine Endocrine: reports: Other (mcc fatigue; patient describes history in past as autoimmune dysfunction; has hypothyroidism) - Hematologic/Lymphatic Hematologic/Lymphatic: reports: Anemia (12/29 labs HCT 33.2) Physical Examination - Vital Signs Temperature: 97.8 C Pulse Rate: 70 Respiratory Rate: 16 O2 Saturation: 99 (RA at rest) Blood Pressure: 158/74 - Physical Exam General Appearance: positive: Mild distress, Other (having difficulty getting her words out; wanting to talk to me) Eyes Bilateral: positive: Other (right eye ptosis worsened) ENT: positive: Dry mucous membranes Neck: positive: No JVD, Trachea midline Respiratory: positive: Breath sounds nml Cardiovascular: positive: Irregularly irregular Abdomen: positive: Non-tender, No distention, Abnml bowel sounds (decreased; distant) Skin: positive: Pallor Extremities: positive: Other (pedal edema not significant compared to baseline prior to event) Neurologic/Psychiatric: positive: Weakness (unclear what patient's new baseline of cognition is; did not seem to grasp even simple questions at times; had been a voracious reader, unable to tell if can read; followed simple directions; recognized myself; appeared to understand was in [facility]), Slurred/abnml speech , Depressed mood/affect Palliative Care - POLST Patient has POLST: Yes POLST Status: DNR, Comfort Measures Pain: Location (patient with baseline severe osteoarthritic pain, bilat DJD has been the most prominent issue in past, but mostly with weight bearing. seemed to agree was having headache pain/which is patient's baseline) Drowsiness: Mild (1-3) (noted by staff nods off in halls) Anxiety: Comment (unknown) Anorexia: Moderate (4-6) (patient reports just "not hungery" when asked about weight loss and eating) Feelings of wellbeing/Perceived Quality of Life: Worsening Performance Status: Patient bedbound/wheelchair bound/ ST evaluation attempting to allow patient to do some self feed; has not started therapy with OT / PT yet - Palliative Care Discussion: Surrogate decision maker-Musa Cueva (MOLLY) at this time. Patient well known to me ; has always been terrified of having another stroke and be incapacitated. She had a stroke at a young age as many of her family members as well. She had been hopeful she would just go in her sleep; but did not want anything to prolong her life is she were not to be independent. Unfortunately, it is difficult to have further conversation or process how she perceives her current quality of life. I tried many different attempts to determine this, previous and now with new POLST, is a DNAR/ and COMFORT MEASURES. Family are not sure either how she currently is doing but want to be supportive, she has been very withdrawn and nonparticipatory in her care up to this point, not able to determine if this is further depression or her difficulty with communication of not wanting any more interventions/support. Patient at baseline was an introvert/loner, had a small apartment at [facility] and went down for a couple of meals only, had lived there for 15 years. She was having more difficulty with mobility, chronic health problems, pain and fatigue. Unfortunately she is with limited resources both family and financial, per Fiordaliza, they are working with Arlene on Medicaid transitioning. Impression and Recommendations - Palliative Care Impression: This is an unfortunate 81 year old woman now with the sequela of a serious intracranial hemmorrhage 12/29 and thought to have extension or recurrent CVA ; she suffers from right hemiplegia, aphasia, dysarthria, and dysphagia. She is newly in [facility] a group home for senior care care, newly started treatment for depression, and with the goal to focus on things that might improve her quality of life currently severely compromised. Recommendations/Counseling Done: 1. Aphasia following nontraumatic intracerebral hemorrhage. I am familiar with patient prior to her acute stroke, unclear how much she understands, does recognize myself and attempting to communicate. Patient was a voracious reader, introvert, and very much worried about loosing her independence. Follow up with Speech Therapist for evaluation of comprehension, ability explore issues of QOL , books on tape, or volunteer to read to patient. 2. 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 Patient currently wheelchair bound, appears uncomfortable with grimacing and shifting. Patient with limitations of being able to independently reposition, will need adaptations for positioning, pressure distribution, and alleviation of discomfort. Follow up with OT for adjustments. Will order acetaminophen 500 mg 2 tabs BID to assist with comfort managment. 3. Headache, positive in exam. Patient had long standing issues prior to stroke , was managed with APAP, will schedule as patient has difficulty making needs known. 4. Advanced care planning. Patient has in past expressed concern regarding loss , of independence, prolongation of suffering, unable to elicit patient's current perceptions of QOL. I have original POLST of DNAR/Comfort measures recorded in her records and [facility] has one with Musa Red her MOLLY signature. Spoke with Musa and Fiordaliza regarding palliative care support for QOL, if patient has another event explored decision making. Will continue to define as patient settles in to new setting. Plan visit in two weeks. Time Spent: 60 minutes with greater than 50% done in counseling with patient in attempt to define current needs and coordination with clinical staff and rehab team.
== END 2017-03-04 11:31 | disposition home or self-care (01) ==
LOC: PC 11:30
PROVIDERS: ATTEND Nurse Practitioner Adult Health
DX: Z51.5 Encounter for palliative care (principal); I69.320 Aphasia following cerebral infarction; R51 Headache; Z99.3 Dependence on wheelchair; Z66 Do not resuscitate; I50.9 Heart failure, unspecified; R60.0 Localized edema; G40.909 Epilepsy, unspecified, not intractable, without status epilepticus; E66.01 Morbid (severe) obesity due to excess calories; M17.0 Bilateral primary osteoarthritis of knee; K58.9 Irritable bowel syndrome, unspecified; N18.9 Chronic kidney disease, unspecified; I69.391 Dysphagia following cerebral infarction; F32.9 Major depressive disorder, single episode, unspecified; R47.1 Dysarthria and anarthria; Z79.82 Long term (current) use of aspirin; Z79.51 Long term (current) use of inhaled steroids; R06.09 Other forms of dyspnea; K21.9 Gastro-esophageal reflux disease without esophagitis; R15.9 Full incontinence of feces; R32 Unspecified urinary incontinence; M62.81 Muscle weakness (generalized); F41.9 Anxiety disorder, unspecified; E03.9 Hypothyroidism, unspecified; D64.9 Anemia, unspecified
CPT/HCPCS: 99310

== ENCOUNTER 2017-03-30 11:15 | Outpatient (CLI) | payer MEDICARE, BC ==
--- NOTE | 2017-03-30 15:55 | CONSULTATION NOTE ---
Palliative Care Follow Up - Referral Referring Provider: Dr. Ivana Tillman Time of Visit: [id number] Referral setting: [facility] Referral Reason: Hemiplegia right nondominant side - Information Sources Records Reviewed: RN notes reviewed, Old records reviewed History obtained from: Caregiver (clinical staff; patient unable to participate) Exam limitations: Clinical condition (patient difficult to arouse; very little verbal response few words nonsensical) - History of Present Illness Update Brief HPI Update: This is an 81-year-old woman with long-term multiple chronic health problems including but not limited to, chronic heart failure with lower extremity edema, lupus, history of stroke, seizure disorder, thyroid disease, morbid obesity and 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 In the context of her autoimmune disease, she has lupus, multiple drug allergies, irritable bowel syndrome, and struggles with long-term fatigue. In December she had a left intracranial hemorrhage which resulted in hemiplegia, hemiparesis, aphasia, dysarthria, and dysphagia. She is dependent for all her care needs, most recently admitted to [facility], she is receiving rehab therapies, but most likely is pretty close to her new baseline. It is difficult to elicit symptoms or distresses, she tends to withdraw, and "play possum" per clinical staff. Today there is concern that of increased lethargy, suspect may be attributed to increase in phenobarbital. Attempting to clarify dosing. Patient's original dose had been 148 mg prior to stroke, they had decreased this to her rehab stay, she has had no further seizure activity and her new baseline was 68 mg. Social History - Living Situation Living arrangement: shelter (patient at) Medications/Allergies - Medications Home Medications: Ambulatory Orders Medication Instructions Recorded Confirmed Albuterol Sulf [Ventolin Hfa 2 puffs INH Q4HR PRN 03/04/17 03/30/17 Inhaler] Ascorbic Acid [Vitamin C] 500 mg PO DAILY 03/04/17 03/30/17 Aspirin [Aspirin EC] 81 mg PO DAILY 03/04/17 03/30/17 Atorvastatin Calcium 40 mg PO DAILY 03/04/17 03/30/17 Bisacodyl 1 - 2 tab PO DAILY PRN 03/04/17 03/30/17 Bisacodyl Supp [Dulcolax Supp] 1 supp [place] DAILY PRN 03/04/17 03/30/17 Citalopram [CeleXA] 10 mg PO DAILY 03/04/17 03/30/17 Ferrous Gluconate 324 mg PO DAILY 03/04/17 03/30/17 Fluticasone [Flonase] 1 spray ALFONSO BID 03/04/17 03/30/17 LORazepam [Ativan] 0.5 mg PO Q4HR PRN 03/04/17 03/30/17 Levothyroxine Sodium 100 mcg PO DAILY 03/04/17 03/30/17 Losartan Potassium 50 mg PO BID 03/04/17 03/30/17 Melatonin 3 mg PO QPM PRN 03/04/17 03/30/17 Metoprolol Tartrate 50 mg PO BID 03/04/17 03/30/17 Mineral Oil/Petrolatum,White 1 applic OP QPM 03/04/17 03/30/17 [Artificial Tears Eye Ointment] Nitroglycerin [Nitrostat] 0.4 mg PO Q8HR PRN 03/04/17 03/30/17 Polyvinyl Alcohol [Artificial 1 drops OP DAILY 03/04/17 03/30/17 Tears] Ranitidine HCl [Acid Control] 150 mg PO BID 03/04/17 03/30/17 Sennosides [Senna] 17.2 mg PO DAILY 03/04/17 03/30/17 Acetaminophen 1,000 mg PO BID 03/30/17 03/30/17 Phenobarbital 145.8 mg PO ACHS 03/30/17 03/30/17 - Allergies Allergies/Adverse Reactions: Allergies Allergy/AdvReac Type Severity Reaction Status Date / Time captopril [From Capoten] Allergy Unknown Verified 11/07/16 06:58 carbamazepine [From Tegretol] Allergy Unknown Verified 11/07/16 06:58 cephalexin monohydrate * Allergy Unknown Verified 11/07/16 06:58 [From Keflex] ciprofloxacin [From Cipro] Allergy Unknown Verified 11/07/16 06:58 clindamycin Allergy Unknown Verified 11/07/16 06:58 codeine Allergy Respiratory Verified 11/07/16 06:58 divalproex sodium Allergy Unknown Verified 11/07/16 06:58 [From Depakote] erythromycin base Allergy Unknown Verified 11/07/16 06:58 felodipine Allergy Unknown Verified 11/07/16 06:58 hydrocodone Allergy Unknown Verified 11/07/16 06:58 hydroxychloroquine sulfate * Allergy Unknown Verified 11/07/16 06:58 [From Plaquenil] levofloxacin [From Levaquin] Allergy Unknown Verified 11/07/16 06:58 methyldopa [From Aldomet] Allergy Unknown Verified 11/07/16 06:58 metronidazole Allergy Unknown Verified 11/07/16 06:58 morphine Allergy Unknown Verified 11/07/16 06:58 Penicillins Allergy Rash Verified 11/07/16 06:58 phenytoin sodium * Allergy Unknown Verified 11/07/16 06:58 [From Dilantin] propranolol HCl * Allergy Unknown Verified 11/07/16 06:58 [From Inderal LA] Sulfa (Sulfonamide Allergy Hives Verified 11/07/16 06:58 Antibiotics) Tetracyclines Allergy Unknown Verified 11/07/16 06:58 caffeine AdvReac Headache Verified 11/07/16 06:58 chocolate flavor AdvReac Cramps Verified 11/07/16 06:58 lactose AdvReac Cramps Verified 11/07/16 06:58 nut - unspecified AdvReac Cramps Verified 11/07/16 06:58 Review of Systems - Other Findings Other Findings: Patient unable to participate in review of systems, follow-up with speech therapy, reports patient not engaged in treatment plan but is working with her to try and get her more independent in eating. Did get a new wheelchair which has helped with positioning. Trying to elicit if patient having more sedation with increased phenobarbital, patient has seem more sedate, she does sleep most of the time anyway. No acute signs or symptoms of concern identified by clinical staff. Physical Exam - Vital Signs Temperature: 97.8 C Pulse Rate: 72 Respiratory Rate: 18 O2 Saturation: 94 (ra @ rest) Blood Pressure: 142/84 - Physical Exam General Appearance: positive: Lethargic (difficult to arouse; able to engage in short interaction; per staff "plays possum" at times as well) Eyes Bilateral: positive: Other (right eye with slight droop) ENT: positive: No signs of dehydration Neck: positive: No JVD, Trachea midline Cardiovascular: positive: Regular rate & rhythm Respiratory: positive: Breath sounds nml, Diminished in bases Abdomen: positive: Non-tender, Soft, Nml bowel sounds, Obese Skin: positive: Pallor, Pressure wound (staff reports skin breakdown resolved at this time; unable to turn patient to examine) Neurologic/Psychiatric: positive: Depressed mood/affect, Other (few yes/no; no words; unclear what understands) Palliative Care - POLST Patient has POLST: Yes POLST Status: DNR, Comfort Measures Pain: No pain Tiredness/Fatigue: Moderate (4-6) (staff reports patient up in wheelchair for meals; takes about 30 minutes to darcy lift and get her transfered. Sleeps large part of day at baseline) Depression: Moderate (4-6) (unclear how to evaluate; is eating at meals some with assistance; poor participation with staff in rehab or any moves to self care or engaged in environment; patient engaged with eye contact in reviewing current status; normalizing feelings of sadness, grief, and loss. The conversations was mostly myself sharing with nonverbal responses to the interaction.) Constipation: Intermittent constipation (using bowel program 2-3 times a month) Performance Status: Patient with maximum care needs, uses Darcy lift to transfer to the wheelchair, needs some assistance with feeding. Impression and Recommendations - Palliative Care Impression: This is an unfortunate 81-year-old woman, now with the sequela of a serious intracranial hemorrhage on December. His thought she had had an extension a recurrent CVA in January. She does suffer from right hemiplegia, aphasia, dysarthria, and dysphagia. She remains somewhat withdrawn, lethargic, and difficulty engaging with her environment. She was recently started on citalopram for depression, patient is unable to participate in exam, she denies any distress though. Recommendations/Counseling Done: 1. Aphasia following nontraumatic anterior cerebral hemorrhage. Good I did follow up with speech therapy, they are working on self feed, patient tends to be somewhat passive on this. This does not surprise me having known her prior to her stroke. They were not really able to find any meaningful way to assist her as far as books on tape or engaging in other activities that had meaning prior to her stroke. 2. 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 Patient is currently wheelchair-bound they have been able to obtained improvement as far as wheelchair seating. I am seeing her today though in her bed. She does not appear to have any improvement as far as her hemiplegia. Have added acetaminophen 1000 mg twice daily to assist with comfort management, unclear if this is been of benefit. 3. Advanced care planning. Patient has in the past express concern regarding loss of independence, prolongation of suffering. Unable to elicit patient's current quality of life perceptions. I have left message both with Musa and Fiordaliza her immediate family, they have not been able to communicate with her as well. We will continue to try and define this patient settles into new setting , given patient's past expressed wishes this would not be perceived as current quality of life. 4. Seizure disorder. I am concerned that phenobarbital has been almost tripled., I suspect this is done as a result of communication between the halfway and office. In attempting to clarify this with her primary. I believe she had no further seizures and did better on a lower dose, patient is already lethargic and sleeping for significant periods of time would recommend we return back to baseline dose of 68 mg. Time Spent: Time spent 45 minutes with greater than 50% of this and follow-up with rehab therapy clinical staff and attempting counseling support for patient. Patient does appear to make eye contact and engage though verbal response difficult to elicit.
== END 2017-03-30 11:16 | disposition home or self-care (01) ==
LOC: PC 11:15
PROVIDERS: ATTEND Nurse Practitioner Adult Health
DX: Z51.5 Encounter for palliative care (principal); I69.820 Aphasia following other cerebrovascular disease; I69.251 Hemiplegia and hemiparesis following other nontraumatic intracranial hemorrhage affecting right dominant side; Z99.3 Dependence on wheelchair; G40.909 Epilepsy, unspecified, not intractable, without status epilepticus; R53.83 Other fatigue; R60.0 Localized edema; K58.9 Irritable bowel syndrome, unspecified; M17.0 Bilateral primary osteoarthritis of knee; E66.01 Morbid (severe) obesity due to excess calories; Z79.51 Long term (current) use of inhaled steroids; Z79.82 Long term (current) use of aspirin; K59.00 Constipation, unspecified; I69.191 Dysphagia following nontraumatic intracerebral hemorrhage; F32.9 Major depressive disorder, single episode, unspecified; Z66 Do not resuscitate
CPT/HCPCS: 99310

== ENCOUNTER 2017-04-22 14:40 | Outpatient (CLI) | payer MEDICARE, BC ==
[2017-04-26 08:11] LABS: TEST RESULT REPORT
== END 2017-04-22 14:41 | disposition home or self-care (01) ==
LOC: LAB.R 14:40
DX: M50.220 Other cervical disc displacement, mid-cervical region, unspecified level (principal)
CPT/HCPCS: 80184; 81599

== ENCOUNTER 2017-05-03 10:00 | Outpatient (CLI) | payer MEDICARE, BC ==
[2017-05-03 18:13] LABS: CALCIUM 9.1 mg/dL (8.5-10.3); CREATININE 1.5 mg/dL (0.4-1.0); POTASSIUM 4.5 mmol/L (3.5-5.0)
--- NOTE | 2017-05-05 03:54 | CONSULTATION NOTE ---
Palliative Care Follow Up - Referral Referring Provider: Dr. Tanya Tillman Time of Visit: 05/03/2017 [id number] Referral setting: [facility] Facility Referral Reason: COPD Exacerbation/CHF - Information Sources Records reviewed: RN notes reviewed, Previous records reviewed History/Review of Systems obtained from: Caregiver Exam limitations: Clinical condition (patient aphasic unable to participate in exam) - History of Present Illness Update Brief HPI Update: This is an 81-year-old woman with long-term multiple chronic health problems including but not limited to chronic heart failure with lower extremity edema, lupus, now with stroke with right hemiplegia and aphasia, seizure disorder, thyroid disease, and morbid obesity as well as 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 She continues to have limited ability to communicate, she can squeeze my hand, she does appear to recognize me, and has made a couple attempts at verbalization. She is dependent for all her care needs, and because of her habitus it has been difficult with transfers needing Darcy lift, as well as appropriate wheelchair seating. She presents today though with notable wheezing, per clinical staff this is been about 1 week, she has no fever or cough. She does have significant respiratory effort with any kind of activity and observation of a Darcy transfer. She has lower extremity edema it does appear to be somewhat worsened. Social History - Living Situation Living arrangement: detention Support System: Sister Dasia in poor health who is her assigned DPO a, her [id number] Musa Red has taken on that role as well as supported by her niece Fiordaliza. The jail is now her permanent residence, she is just now been approved for Medicaid. Medications/Allergies - Medications Home Medications: Ambulatory Orders Medication Instructions Recorded Confirmed Albuterol Sulf [Ventolin Hfa 2 puffs INH Q4HR PRN 03/04/17 03/30/17 Inhaler] Ascorbic Acid [Vitamin C] 500 mg PO DAILY 03/04/17 05/05/17 Aspirin [Aspirin EC] 81 mg PO DAILY 03/04/17 05/05/17 Atorvastatin Calcium 40 mg PO DAILY 03/04/17 05/05/17 Bisacodyl 1 - 2 tab PO DAILY PRN 03/04/17 03/30/17 Bisacodyl Supp [Dulcolax Supp] 1 supp [place] DAILY PRN 03/04/17 05/05/17 Citalopram [CeleXA] 10 mg PO DAILY 03/04/17 05/05/17 Ferrous Gluconate 324 mg PO DAILY 03/04/17 05/05/17 Fluticasone [Flonase] 1 spray ALFONSO BID 03/04/17 05/05/17 LORazepam [Ativan] 0.5 mg PO Q4HR PRN 03/04/17 05/05/17 Levothyroxine Sodium 100 mcg PO DAILY 03/04/17 05/05/17 Losartan Potassium 50 mg PO BID 03/04/17 05/05/17 Melatonin 3 mg PO QPM PRN 03/04/17 03/30/17 Metoprolol Tartrate 50 mg PO BID 03/04/17 05/05/17 Mineral Oil/Petrolatum,White 1 applic OP QPM 03/04/17 03/30/17 [Artificial Tears Eye Ointment] Nitroglycerin [Nitrostat] 0.4 mg PO Q8HR PRN 03/04/17 03/30/17 Polyvinyl Alcohol [Artificial 1 drops OP DAILY 03/04/17 03/30/17 Tears] Ranitidine HCl [Acid Control] 150 mg PO BID 03/04/17 05/05/17 Sennosides [Senna] 17.2 mg PO DAILY 03/04/17 05/05/17 Acetaminophen 1,000 mg PO BID 03/30/17 05/05/17 PHENobarbital [Phenobarbital] 129.6 mg PO [facility] 03/30/17 05/05/17 Albuterol Oral Soln 1 vial INH Q4HR PRN 05/05/17 05/05/17 Furosemide 20 mg PO DAILY 05/05/17 05/05/17 Trazodone HCl 50 mg PO [facility] 05/05/17 05/05/17 predniSONE [Prednisone] 40 mg PO DAILY 05/05/17 05/05/17 - Allergies Allergies/Adverse Reactions: Allergies Allergy/AdvReac Type Severity Reaction Status Date / Time captopril [From Capoten] Allergy Unknown Verified 11/07/16 06:58 carbamazepine [From Tegretol] Allergy Unknown Verified 11/07/16 06:58 cephalexin monohydrate * Allergy Unknown Verified 11/07/16 06:58 [From Keflex] ciprofloxacin [From Cipro] Allergy Unknown Verified 11/07/16 06:58 clindamycin Allergy Unknown Verified 11/07/16 06:58 codeine Allergy Respiratory Verified 11/07/16 06:58 divalproex sodium Allergy Unknown Verified 11/07/16 06:58 [From Depakote] erythromycin base Allergy Unknown Verified 11/07/16 06:58 felodipine Allergy Unknown Verified 11/07/16 06:58 hydrocodone Allergy Unknown Verified 11/07/16 06:58 hydroxychloroquine sulfate * Allergy Unknown Verified 11/07/16 06:58 [From Plaquenil] levofloxacin [From Levaquin] Allergy Unknown Verified 11/07/16 06:58 methyldopa [From Aldomet] Allergy Unknown Verified 11/07/16 06:58 metronidazole Allergy Unknown Verified 11/07/16 06:58 morphine Allergy Unknown Verified 11/07/16 06:58 Penicillins Allergy Rash Verified 11/07/16 06:58 phenytoin sodium * Allergy Unknown Verified 11/07/16 06:58 [From Dilantin] propranolol HCl * Allergy Unknown Verified 11/07/16 06:58 [From Inderal LA] Sulfa (Sulfonamide Allergy Hives Verified 11/07/16 06:58 Antibiotics) Tetracyclines Allergy Unknown Verified 11/07/16 06:58 caffeine AdvReac Headache Verified 11/07/16 06:58 chocolate flavor AdvReac Cramps Verified 11/07/16 06:58 lactose AdvReac Cramps Verified 11/07/16 06:58 nut - unspecified AdvReac Cramps Verified 11/07/16 06:58 Review of Systems - Constitutional Constitutional: reports: Fatigue, Other (family had expressed concern over patients appearance of weight gain; suspect some is fluid but monthly weights have been stable) - Eyes Eyes: reports: Vision loss - Cardiovascular Cardiovascular: reports: Edema, Exertional dyspnea - Respiratory Respiratory: reports: Wheezing (staff reports this has been evident about a week ; increased in AM as well as noted with transfer) - Genitourinary Genitourinary: reports: Incontinence - Musculoskeletal Musculoskeletal: reports: Stiffness, Muscle weakness, Other (toning when in wheelchair; right hemiplegia) - Integumentary Integumentary: reports: Other (no breakdown at this time per report) - Neurological Neurological: reports: Other (aphasic) - Other Findings Other Findings: ROS limited given patient's condition; recorded staff observations Physical Exam - Vital Signs Temperature: 97.9 C Pulse Rate: 67 Respiratory Rate: 24 O2 Saturation: 99 (room air) Blood Pressure: 162/82 - Physical Exam General Appearance: positive: Moderate distress (attributed to respiratory effort) Eyes Bilateral: positive: Other (slight droop right eye; baseline previous to stroke) ENT: positive: ENT inspection nml Neck: positive: Trachea midline, Other (thickened neck unable to discern JVD) Cardiovascular: positive: Regular rate & rhythm Respiratory: positive: Wheezes (because of habitus limited exam though upper airway wheezing notable, bases diminished but distant; respiratory effort with transfer-took about 5-8 minutes to settle in RR up to 32) Abdomen: positive: Soft, Obese Skin: positive: Pallor, Other (gluteal cleft reddened and moist but not open) Extremities: positive: Pedal edema (left greater than right; taut appear larger than last exam) Neurologic/Psychiatric: positive: Unintelligible speech (attempted few words), Flat affect Palliative Care - POLST Patient has POLST: Yes POLST Status: DNR, Comfort Measures Pain: Comment (unknown; seems shoulder discomfort with transfers; known underlying osteoarthritic pain in knees and shoulders; difficulty related to toning to get comfortable) Tiredness/Fatigue: Moderate (4-6) Performance Status: Patient is dependent on Darcy for transfers, and repositioning. Patient still requires maximum assist for feeding. She is on a mechanical soft diet. She can be resistant to caregivers and care. - Palliative Care Discussion: Patient in previous conversations had always been somewhat fearful of another stroke and being dependent. She is unable now to express her feelings or concerns regarding her current quality of life. I did check in with her niece who does visit on a regular basis, she too feels that Mita's quality of life would not be what she did want currently. The focus for the family and honor of Mita's wishes is on comfort, recognizing she is actually quite fragile, and at risk for continued decline. She does have a MEGAN ST in place with do not attempt resuscitation and comfort measures only. We will continue to weigh benefits and burdens of interventions with the focus on quality of life Results - Lab Results Lab results reviewed: Yes Fish Bones: 05/03/17 15:00 Impression and Recommendations - Palliative Care Impression: This is an unfortunate 81-year-old woman now with the sequela of a serious intracranial hemorrhage. She did have an extension a recurrent CVA in January, she suffers from right hemiplegia and aphasia dysarthria and dysphagia. She presents today with increased signs and symptoms of heart failure, COPD exacerbation, and respiratory distress. Given her goals are to focus on quality of life will go ahead and treat for symptom management. Follow-up with PCP for treatment plan so congruent and our approach particularly at the halfway facility. Recommendations/Counseling Done: 1. COPD exacerbation. Patient significantly wheezy suspect inflammation component. Staff reports symptoms for about a week. They have been administering albuterol with limited success. Patient unable to really follow or cooperate. I initiated prednisone 40 mg 5 days. 2. CHF exacerbation, are challenged because she does have significant chronic kidney disease, will initiate Lasix and ordered BMP and BNP Ordered 20 mg 3 days.Patient has been challenged in the past with trying to find balance. 3. 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 Patient is currently wheelchair-bound, patient does require tilt in space wheelchair secondary to toning. Challenge to get appropriate seating related to insurance issues. Did confirm with her [id number] Musa Red, she has qualified for Medicaid. This information was shared with OT who will facilitate obtaining appropriate wheelchair and better fitting. Follow-up done with speech therapy her niece's request, she has essentially not be able to improve on her aphasia. Most of this is related to her residual effects, and some due to cooperation. 4. Seizure disorder phenobarbital level was drawn, is running somewhat low, had been returned back to baseline dose of 68 mg. Now has been doubled. Currently unclear if this is impacting her lethargy. Counseled with PCP will leave it at current dosing for now. And observe for increasing problems. It is unknown when she has had her last documented seizure. 5. Advanced care planning. Patient has in the past express concern regarding loss of independence and prolongation of suffering. Unable currently to participate in weighing benefits and burdens of current treatment decisions. Both Musa adkins and Fiordaliza her immediate family, her continue to make decisions and the context of how she has communicated in the past. They do the perceive her quality of life is deteriorating. Time Spent: Time spent 45 minutes with greater than 50% of this done in counseling and coordination of care related to patient's treatment plan with PCP, clinical staff, and follow-up with family members for updates.
== END 2017-05-03 10:01 | disposition home or self-care (01) ==
LOC: LAB.R 10:00
DX: I50.40 Unspecified combined systolic (congestive) and diastolic (congestive) heart failure (principal); Z79.899 Other long term (current) drug therapy
CPT/HCPCS: 80048; 83880

== ENCOUNTER 2017-05-13 08:00 | Outpatient (CLI) | payer MEDICARE, BC ==
[2017-05-13 18:57] LABS: ALBUMIN/GLOBULIN RATIO 1.1 (1.0-2.2); BILIRUBIN,TOTAL 0.4 mg/dL (0.2-1.0); CALCIUM 9.3 mg/dL (8.5-10.3); CREATININE 1.3 mg/dL (0.4-1.0); TOTAL PROTEIN 7.9 g/dL (6.7-8.2)
[2017-05-17 04:31] LABS: TEST RESULT REPORT
== END 2017-05-13 08:01 | disposition home or self-care (01) ==
LOC: LAB.R 08:00
DX: I10 Essential (primary) hypertension (principal); I50.9 Heart failure, unspecified; G40.909 Epilepsy, unspecified, not intractable, without status epilepticus
CPT/HCPCS: 80053; 81599; 83880

== ENCOUNTER 2017-05-19 08:00 | Outpatient (CLI) | payer MEDICARE, BC ==
[2017-05-19 18:24] LABS: BASOPHILS # (AUTO) 0.1 10^3/uL (0.0-0.1); BASOPHILS % (AUTO) 1.6 %; EOSINOPHILS # (AUTO) 0.1 10^3/uL (0.0-0.7); EOSINOPHILS % (AUTO) 2.2 %; HCT - HEMATOCRIT 29.4 % (37.0-47.0); HGB - HEMOGLOBIN 9.9 g/dL (12.0-16.0); LYMPHOCYTES # (AUTO) 0.5 10^3/uL (1.5-3.5); LYMPHOCYTES % (AUTO) 12.7 %; MEAN CORPUSCULAR HEMOGLOBIN 33.4 pg (27.0-31.0); MEAN CORPUSCULAR HGB CONC 33.6 g/dL (32.0-36.0); MEAN CORPUSCULAR VOLUME 99.4 fL (81.0-99.0); MEAN PLATELET VOLUME 9.1 fL (7.9-10.8); MONOCYTES # (AUTO) 0.5 10^3/uL (0.0-1.0); MONOCYTES % (AUTO) 11.6 %; NEUTROPHILS % (AUTO) 71.9 %; NUCLEATED RED BLOOD CELLS AUTO 0.5 /100WBC; RED BLOOD COUNT 2.96 10^6/uL (4.20-5.40); RED CELL DISTRIBUTION WIDTH 13.1 % (12.0-15.0); UNCORRECTED WHITE BLOOD COUNT 4.2 x10^3/uL; WHITE BLOOD COUNT 4.2 x10^3/uL (4.8-10.8)
[2017-05-19 18:41] LABS: IRON 65 ug/dL (28-170); TOTAL IRON BINDING CAPACITY 272 ug/dL (250-450); TRANSFERRIN 194 mg/dL (192-382)
[2017-05-19 18:49] LABS: THYROID STIMULATING HORMONE 3.65 uIU/mL (0.34-5.60)
== END 2017-05-19 08:01 | disposition home or self-care (01) ==
LOC: LAB.R 08:00
DX: D64.9 Anemia, unspecified (principal)
CPT/HCPCS: 82728; 83540; 84443; 84466; 85025

== ENCOUNTER 2017-06-08 17:35 | Outpatient (CLI) | payer MEDICARE, BC ==
[2017-06-08 20:13] LABS: CALCIUM 8.6 mg/dL (8.5-10.3); CREATININE 1.6 mg/dL (0.4-1.0); POTASSIUM 4.8 mmol/L (3.5-5.0)
== END 2017-06-08 17:36 | disposition home or self-care (01) ==
LOC: LAB.R 17:35
DX: R79.89 Other specified abnormal findings of blood chemistry (principal)
CPT/HCPCS: 36415; 80048; 83880

== ENCOUNTER 2017-06-09 08:15 | Outpatient (CLI) | payer MEDICARE, BC ==
--- NOTE | 2017-06-09 09:11 | CONSULTATION NOTE ---
Palliative Care Follow Up - Referral Referring Provider: Dr. Ivana Tillman Time of Visit: 9097-0559 Referral setting: [facility] Facility Referral Reason: COPD/CHF Exacerbation - Information Sources Records reviewed: RN notes reviewed, Previous records reviewed History/Review of Systems obtained from: Caregiver (Clinical staff) Exam limitations: Clinical condition (patient aphasic; unable to participate in ROS) - History of Present Illness Update Brief HPI Update: This is a 81-year-old woman with long-term multiple chronic health problems including but not limited to chronic heart failure with lower extremity edema, lupus, as stroke with right hemiplegia and aphasia, seizure disorder, thyroid disease, and morbid obesity. She also has severe DJD. I got a call yesterday that she had increased wheezing, shortness of breath, was not responding to her albuterol. She did have a similar episode about over a month ago. In agreement to diminish her distress they were requested to Give her an extra 40 mg of Lasix now, and start a prednisone 40 mg. Also requested that they draw a EMP and B and P. Due to misfortune advanced, BNP is not available this morning for review. Patient does present with upper respiratory wheezing, no crackles in her lower lobes. She does have some increased edema in her lower legs.She has been on a calorie restricted diet and addressing her increasing weight. Though she has increased weight over the week 06/02 she was 233.6 and 06/04 she was 236.7. Patient is much clearer mentally, than I have had in the past is able to speak a few words in response to questions. She did appear to recognize me was alert and engaged. She did report some tightness in her chest. Social History - Living Situation Living arrangement: [facility] Support System: Patient was a dispensed her, long-term resident of [facility] after she had a stroke. Unfortunately now with her new stroke and exacerbation, she is dependent for all her ADLs. [facility] is now a permanent placement for her, she is there under her Medicaid benefit. Her support is her niece Fiordaliza and her sister Daxa, as well as her DPOA is Musa Red her [id number]. Medications/Allergies - Medications Home Medications: Ambulatory Orders Medication Instructions Recorded Confirmed Albuterol Sulf [Ventolin Hfa 2 puffs INH Q4HR PRN 03/04/17 06/09/17 Inhaler] Ascorbic Acid [Vitamin C] 500 mg PO DAILY 03/04/17 06/09/17 Aspirin [Aspirin EC] 81 mg PO DAILY 03/04/17 06/09/17 Atorvastatin Calcium 40 mg PO DAILY 03/04/17 06/09/17 Bisacodyl 1 - 2 tab PO DAILY PRN 03/04/17 06/09/17 Bisacodyl Supp [Dulcolax Supp] 1 supp [place] DAILY PRN 03/04/17 06/09/17 Citalopram [CeleXA] 10 mg PO DAILY 03/04/17 06/09/17 Ferrous Gluconate 324 mg PO DAILY 03/04/17 06/09/17 Fluticasone [Flonase] 1 spray ALFONSO BID 03/04/17 06/09/17 Levothyroxine Sodium 100 mcg PO DAILY 03/04/17 06/09/17 Losartan Potassium 50 mg PO BID 03/04/17 06/09/17 Melatonin 3 mg PO QPM PRN 03/04/17 06/09/17 Metoprolol Tartrate 50 mg PO BID 03/04/17 06/09/17 Nitroglycerin [Nitrostat] 0.4 mg PO Q8HR PRN 03/04/17 06/09/17 Ranitidine HCl [Acid Control] 150 mg PO BID 03/04/17 06/09/17 Sennosides [Senna] 17.2 mg PO DAILY 03/04/17 06/09/17 Acetaminophen 1,000 mg PO BID 03/30/17 06/09/17 PHENobarbital [Phenobarbital] 129.6 mg PO [facility] 03/30/17 06/09/17 Albuterol Oral Soln 1 vial INH Q4HR PRN 05/05/17 06/09/17 Furosemide 40 mg PO DAILY 05/05/17 06/09/17 Trazodone HCl 50 mg PO [facility] 05/05/17 06/09/17 predniSONE [Prednisone] 40 mg PO DAILY 05/05/17 06/09/17 Mineral Oil/Petrolatum,White 1 applic EACHEYE [facility] 06/09/17 06/09/17 [Artificial Tears Eye Ointment] Polyvinyl Alcohol [Artificial 1 drops EACHEYE DAILY 06/09/17 06/09/17 Tears] - Allergies Allergies/Adverse Reactions: Allergies Allergy/AdvReac Type Severity Reaction Status Date / Time captopril [From Capoten] Allergy Unknown Verified 11/07/16 06:58 carbamazepine [From Tegretol] Allergy Unknown Verified 11/07/16 06:58 cephalexin monohydrate * Allergy Unknown Verified 11/07/16 06:58 [From Keflex] ciprofloxacin [From Cipro] Allergy Unknown Verified 11/07/16 06:58 clindamycin Allergy Unknown Verified 11/07/16 06:58 codeine Allergy Respiratory Verified 11/07/16 06:58 divalproex sodium Allergy Unknown Verified 11/07/16 06:58 [From Depakote] erythromycin base Allergy Unknown Verified 11/07/16 06:58 felodipine Allergy Unknown Verified 11/07/16 06:58 hydrocodone Allergy Unknown Verified 11/07/16 06:58 hydroxychloroquine sulfate * Allergy Unknown Verified 11/07/16 06:58 [From Plaquenil] levofloxacin [From Levaquin] Allergy Unknown Verified 11/07/16 06:58 methyldopa [From Aldomet] Allergy Unknown Verified 11/07/16 06:58 metronidazole Allergy Unknown Verified 11/07/16 06:58 morphine Allergy Unknown Verified 11/07/16 06:58 Penicillins Allergy Rash Verified 11/07/16 06:58 phenytoin sodium * Allergy Unknown Verified 11/07/16 06:58 [From Dilantin] propranolol HCl * Allergy Unknown Verified 11/07/16 06:58 [From Inderal LA] Sulfa (Sulfonamide Allergy Hives Verified 11/07/16 06:58 Antibiotics) Tetracyclines Allergy Unknown Verified 11/07/16 06:58 caffeine AdvReac Headache Verified 11/07/16 06:58 chocolate flavor AdvReac Cramps Verified 11/07/16 06:58 lactose AdvReac Cramps Verified 11/07/16 06:58 nut - unspecified AdvReac Cramps Verified 11/07/16 06:58 Review of Systems - Constitutional Constitutional: reports: Other (patient on weight loss plan but has gained 3 pounds this week;) - Ears, Nose & Throat Ears, Nose & Throat: reports: Hearing loss, Postnasal drainage - Cardiovascular Cardiovascular: reports: Edema - Respiratory Respiratory: reports: Wheezing, SOB at rest (reported increase wheezing shortness of breath for 24 -48 hours), SOB with exertion - Gastrointestinal Gastrointestinal: reports: Good appetite. denies: Constipation, Nausea - Genitourinary Genitourinary: reports: Incontinence - Musculoskeletal Musculoskeletal: reports: Limited range of motion, Transfer issues (uses darcy lift; wheelchair bound; getting new ordered wheelchair) - Neurological Neurological: reports: Memory problems, Other (aphasic) - Hematologic/Lymphatic Hematologic/Lymphatic: reports: Anemia (longstanding;) - All Other Systems All Other Systems: reports: Reviewed and negative Physical Exam - Vital Signs Temperature: 97.5 C Pulse Rate: 72 Respiratory Rate: 20 O2 Saturation: 98 (ra@ rest) Blood Pressure: 122/82 - Physical Exam General Appearance: positive: No acute distress Eyes Bilateral: positive: Normal inspection ENT: positive: No signs of dehydration Neck: positive: No JVD, Trachea midline Cardiovascular: positive: Regular rate & rhythm Respiratory: positive: Wheezes (upper airway wheezing anteriorly; 0xygen sats 99 %). negative: Rales Abdomen: positive: Non-tender, Soft, Nml bowel sounds, Obese Skin: positive: Pallor Extremities: positive: Pedal edema (right greater than left; localized ankle) Neurologic/Psychiatric: positive: Other Palliative Care - POLST Patient has POLST: Yes POLST Status: DNR, Comfort Measures Pain: Comment (unknown but did not acknowledge when asked; has had knee pain in past) Sleep: Sleeps well (per patient and staff no sleep problems) Constipation: No, Managed Feelings of wellbeing/Perceived Quality of Life: Poor Performance Status: Patient is dependent for all ADLs, she is a Darcy lift. She does need assistance with feeding. Occasionally can self feed. She is in the ill fitting wheelchair, is in the process of getting a tilt in space which I believe will at least make it look like she is more comfortable. - Palliative Care Discussion: Patient up in wheelchair when arrived. It did appear to recognize me, was able to answer in some short sentences. When asked how she was doing she kind of did a my role. She Had a my arm and giving me hugs when he was talking to her. He did ask her if she was happy, she teared up and started to cry. She does seem more alert and understanding our conversation today. I did speak with staff it does appear like she has overall settled in some she seems to be less irritable and 1 of the residents in the dining room says that she likes to hold her hand. Did speak with Musa Red, her [id number], reports that her sister had gone visit and seemed to recognize her and enjoy her visit a couple days ago. This made them both quite happy. I gave him an update on her most recent exacerbation, in agreement to continue to focus on comfort and avoid hospitalization. Results - Lab Results Lab results reviewed: Yes Lab and Imaging Results: NA 135, k 4.8, BUN 36, creat 1.6, GFR 31 BNP 359 Impression and Recommendations - Palliative Care Impression: This is an 81-year-old woman with multiple core morbidities, who presents today with exacerbation of her COPD and heart failure. Will confirm with BNP, Has kidney function quite poor. She does appear more responsive, is tearful when discussing quality of life, and continues dependent for all ADLs. Recommendations/Counseling Done: 1. COPD exacerbation. Patient was trialed with albuterol nebulizer, patient unable to really participate. Will go ahead and give a prednisone burst of 40 mg daily 5 days. She already has had some improvement. She does report tightness, and does present with some expiratory wheezing. 2. Acute on chronic heart failure. She has had a 3 pound weight gain noted, this is despite portion control and weight loss diet. She does have lower extremity edema right greater than left. She does not have crackles in her lower lobes. Her BNP was 359 perception was that she had responded well to the Lasix yesterday will give her 3 more days and check labs again next week. Consult with PCP regarding care plan and agreement 3. 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 Patient is wheelchair bound, they are working on getting her a tilt in space wheelchair. I do believe this will improve her quality of life as well as risk for skin breakdown. I have left a message with therapy, to try and expedite this process. 4. Advanced care planning patient does have a MEGAN ST in place. She is quite tearful when asked about quality of life. Though overall perception both from family and staff as her depression has improved. I confirmed with her brother- in-law Musa her DPO a plan of care and focus to continue on avoiding hospitalization. Patient does appear not to be acutely ill at this point in time. But is at high risk for further sequela of stroke and or recurrent heart failure symptoms. Time Spent: 30 minutes with greater than 50% of this done in counseling coordination of care with PCP and clinical cath. Also follow-up with family regarding up-to- date and plan of care
== END 2017-06-09 08:16 | disposition home or self-care (01) ==
LOC: PC 08:15
PROVIDERS: ATTEND Nurse Practitioner Adult Health
DX: Z51.5 Encounter for palliative care (principal); I50.9 Heart failure, unspecified; J44.9 Chronic obstructive pulmonary disease, unspecified; I69.351 Hemiplegia and hemiparesis following cerebral infarction affecting right dominant side; Z99.3 Dependence on wheelchair; R60.0 Localized edema; I69.320 Aphasia following cerebral infarction; G40.909 Epilepsy, unspecified, not intractable, without status epilepticus; E66.01 Morbid (severe) obesity due to excess calories; M19.90 Unspecified osteoarthritis, unspecified site; R06.2 Wheezing; Z79.82 Long term (current) use of aspirin; Z79.51 Long term (current) use of inhaled steroids; Z79.52 Long term (current) use of systemic steroids; R06.09 Other forms of dyspnea; Z66 Do not resuscitate
CPT/HCPCS: 83880; 99309

== ENCOUNTER 2017-06-09 15:12 | Outpatient (CLI) | payer MEDICARE, BC | END 2017-06-09 15:13 | disposition home or self-care (01) | LOC: LAB.R 15:12 | DX: N17.9 Acute kidney failure, unspecified (principal) ==

== ENCOUNTER 2017-06-16 08:00 | Outpatient (CLI) | payer MEDICARE, BC ==
[2017-06-16 19:40] LABS: CALCIUM 9.1 mg/dL (8.5-10.3); CREATININE 1.3 mg/dL (0.4-1.0)
== END 2017-06-16 08:01 | disposition home or self-care (01) ==
LOC: LAB.R 08:00
DX: I50.9 Heart failure, unspecified (principal)
CPT/HCPCS: 80048; 83880

== ENCOUNTER 2017-06-17 17:26 | Outpatient (CLI) | payer MEDICARE, BC ==
--- NOTE | 2017-06-17 17:52 | CONSULTATION NOTE ---
Palliative Care Follow Up - Referral Referring Provider: Ivana Tillman MD Time of Visit: [id number] Referral setting: [facility] Facility Referral Reason: COPD/CHF - Information Sources Records reviewed: Previous records reviewed History/Review of Systems obtained from: Caregiver (clinical staff) Exam limitations: Clinical condition (patient aphasic) - History of Present Illness Update Brief HPI Update: This is an 81-year-old woman with right-sided hemiplegia and aphasia as a result of a stroke this year, and long-term multiple chronic health problems. She recently presented with an exacerbation of her heart failure/COPD with increased wheezing, shortness of breath, not responding to her albuterol. She was given a boost of prednisone 40 mg 5 days as well as an extra dose of Lasix. She does have long-standing chronic kidney disease as well, which makes it challenging to diurese her. Today she has a small upper airway wheeze on inspiration, her BNP is down a few points from last week to321 from 359, but her GFR remains fragile at 39. She is unable to really take albuterol, this is partly related to her habitus and also ability to follow directions at time. She has no crackles, though she still continues with another 3 pound weight gain but weights are difficult to obtain accurately, no increase in lower extremity edema, or increase in distress. Lung bases are clear. She does appear to recognize me and interact, she denies any feelings of increased shortness of breath or pain. She does roll her eyes when asked about how she is doing. Social History - Living Situation Living arrangement: retirement Support System: Brother in law Musa Cueva oversees care, and kevon Mancera involved Medications/Allergies - Medications Home Medications: Ambulatory Orders Medication Instructions Recorded Confirmed Albuterol Sulf [Ventolin Hfa 2 puffs INH Q4HR PRN 03/04/17 06/17/17 Inhaler] Ascorbic Acid [Vitamin C] 500 mg PO DAILY 03/04/17 06/17/17 Aspirin [Aspirin EC] 81 mg PO DAILY 03/04/17 06/17/17 Atorvastatin Calcium 40 mg PO DAILY 03/04/17 06/17/17 Bisacodyl 1 - 2 tab PO DAILY PRN 03/04/17 06/17/17 Bisacodyl Supp [Dulcolax Supp] 1 supp [place] DAILY PRN 03/04/17 06/17/17 Citalopram [CeleXA] 10 mg PO DAILY 03/04/17 06/17/17 Ferrous Gluconate 324 mg PO DAILY 03/04/17 06/17/17 Fluticasone [Flonase] 1 spray ALFONSO BID 03/04/17 06/17/17 Levothyroxine Sodium 100 mcg PO DAILY 03/04/17 06/17/17 Losartan Potassium 50 mg PO BID 03/04/17 06/17/17 Melatonin 3 mg PO QPM PRN 03/04/17 06/17/17 Metoprolol Tartrate 50 mg PO BID 03/04/17 06/17/17 Nitroglycerin [Nitrostat] 0.4 mg PO Q8HR PRN 03/04/17 06/17/17 Ranitidine HCl [Acid Control] 150 mg PO BID 03/04/17 06/17/17 Sennosides [Senna] 17.2 mg PO DAILY 03/04/17 06/17/17 Acetaminophen 1,000 mg PO BID 03/30/17 06/17/17 PHENobarbital [Phenobarbital] 129.6 mg PO [facility] 03/30/17 06/17/17 Albuterol Oral Soln 1 vial INH Q4HR PRN 05/05/17 06/17/17 Furosemide 20 mg PO DAILY 05/05/17 06/17/17 Trazodone HCl 50 mg PO [facility] PRN 05/05/17 06/17/17 predniSONE [Prednisone] 10 mg PO DAILY 05/05/17 06/17/17 Mineral Oil/Petrolatum,White 1 applic EACHEYE [facility] 06/09/17 06/17/17 [Artificial Tears Eye Ointment] Polyvinyl Alcohol [Artificial 1 drops EACHEYE DAILY 06/09/17 06/17/17 Tears] - Allergies Allergies/Adverse Reactions: Allergies Allergy/AdvReac Type Severity Reaction Status Date / Time captopril [From Capoten] Allergy Unknown Verified 11/07/16 06:58 carbamazepine [From Tegretol] Allergy Unknown Verified 11/07/16 06:58 cephalexin monohydrate * Allergy Unknown Verified 11/07/16 06:58 [From Keflex] ciprofloxacin [From Cipro] Allergy Unknown Verified 11/07/16 06:58 clindamycin Allergy Unknown Verified 11/07/16 06:58 codeine Allergy Respiratory Verified 11/07/16 06:58 divalproex sodium Allergy Unknown Verified 11/07/16 06:58 [From Depakote] erythromycin base Allergy Unknown Verified 11/07/16 06:58 felodipine Allergy Unknown Verified 11/07/16 06:58 hydrocodone Allergy Unknown Verified 11/07/16 06:58 hydroxychloroquine sulfate * Allergy Unknown Verified 11/07/16 06:58 [From Plaquenil] levofloxacin [From Levaquin] Allergy Unknown Verified 11/07/16 06:58 methyldopa [From Aldomet] Allergy Unknown Verified 11/07/16 06:58 metronidazole Allergy Unknown Verified 11/07/16 06:58 morphine Allergy Unknown Verified 11/07/16 06:58 Penicillins Allergy Rash Verified 11/07/16 06:58 phenytoin sodium * Allergy Unknown Verified 11/07/16 06:58 [From Dilantin] propranolol HCl * Allergy Unknown Verified 11/07/16 06:58 [From Inderal LA] Sulfa (Sulfonamide Allergy Hives Verified 11/07/16 06:58 Antibiotics) Tetracyclines Allergy Unknown Verified 11/07/16 06:58 caffeine AdvReac Headache Verified 11/07/16 06:58 chocolate flavor AdvReac Cramps Verified 11/07/16 06:58 lactose AdvReac Cramps Verified 11/07/16 06:58 nut - unspecified AdvReac Cramps Verified 11/07/16 06:58 Review of Systems - Constitutional Constitutional: reports: Weight gain - Respiratory Respiratory: reports: Wheezing - Gastrointestinal Gastrointestinal: reports: Good appetite - Genitourinary Genitourinary: reports: Incontinence - Musculoskeletal Musculoskeletal: reports: Transfer issues (uses darcy for transfer) - Integumentary Integumentary: reports: Other (new skin irritation at right thigh; pressure area on back of head) - Neurological Neurological: reports: Other (aphasic;right hemiparesis) - Psychiatric Psychiatric: reports: Depression (much improved) - Endocrine Endocrine: reports: Intolerance to cold - Hematologic/Lymphatic Hematologic/Lymphatic: reports: Anemia, Bruising. denies: Recurrent infections - All Other Systems All Other Systems: reports: Reviewed and negative - Other Findings Other Findings: limited ROS with clinical staff Physical Exam - Vital Signs Temperature: 97.6 C Pulse Rate: 72 Respiratory Rate: 18 O2 Saturation: 97 (ra @ rest) Blood Pressure: 132/72 - Physical Exam General Appearance: positive: No acute distress Eyes Bilateral: positive: Normal inspection ENT: positive: ENT inspection nml Neck: positive: No JVD, Trachea midline Cardiovascular: positive: Regular rate & rhythm Respiratory: positive: Diminished in bases, Wheezes (upper airway slight). negative: Rales, Rhonchi Abdomen: positive: Soft, Nml bowel sounds, Obese Skin: positive: Wound (right thigh fold; brief line and where darcy hits; barrier cream on; pressure point on back of head-no breakdown but discolored/ pink) Extremities: positive: Pedal edema (no noted in crease from baseline) Neurologic/Psychiatric: positive: Slurred/abnml speech, Flat affect, Other ( patient with few word answers that were appropriate in response to conversation) Palliative Care - POLST Patient has POLST: Yes POLST Status: DNR, Comfort Measures Performance Status: Patient dependent for all ADLs, she is a Darcy lift. She is incontinent of both bowel and bladder. - Palliative Care Discussion: Patient's previously stated goals included not to prolong any suffering, and she actually had a fairly good premonition of how the rest of her life is going to go particularly she had a stroke. Family's goal is to focus on comfort and quality of life issues as well as to avoid hospitalization. Impression and Recommendations - Palliative Care Impression: This is an 81-year-old woman with multiple comorbidities, continued difficulty with her COPD and acute on chronic heart failure. Currently her symptoms are better controlled, though she remains at high risk for further deterioration. Goals of care continue to focus on comfort and minimizing suffering. Recommendations/Counseling Done: 1. COPD exacerbation, did improve somewhat, she denies distress currently and her respiratory symptoms are improved. Given patient unable to take any inhalers, discussion with PCP Dr. pittman, will trial prednisone 10 mg daily and see if this assists. 2. Acute on chronic heart failure. She continues to have weight down, she has no crackles or increase in lower extremity edema today. Her BNP has decreased some, but her kidney failure remains problematic. Will continue on current care plan and evaluate labs in 2 weeks. 3. 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 Patient still does not have her new tilt in space wheelchair, given her habitus it is very difficult for her to reposition. She is having skin issues. This was reviewed with nursing as far as pressure relief measures. Time Spent: 30 minutes with greater than 50% of this done in counseling and coordination of care with PCP and clinical staff
== END 2017-06-17 17:27 | disposition home or self-care (01) ==
LOC: PC 17:26
PROVIDERS: ATTEND Nurse Practitioner Adult Health
DX: Z51.5 Encounter for palliative care (principal); J44.1 Chronic obstructive pulmonary disease with (acute) exacerbation; I50.9 Heart failure, unspecified; I69.151 Hemiplegia and hemiparesis following nontraumatic intracerebral hemorrhage affecting right dominant side; I69.120 Aphasia following nontraumatic intracerebral hemorrhage; N18.9 Chronic kidney disease, unspecified; R63.5 Abnormal weight gain; Z79.82 Long term (current) use of aspirin; Z79.51 Long term (current) use of inhaled steroids; Z79.52 Long term (current) use of systemic steroids; R32 Unspecified urinary incontinence; R15.9 Full incontinence of feces; F32.9 Major depressive disorder, single episode, unspecified; Z66 Do not resuscitate
CPT/HCPCS: 99309

== ENCOUNTER 2017-08-21 15:00 | Outpatient (CLI) | payer MEDICARE, BC | END 2017-08-21 15:01 | disposition home or self-care (01) | LOC: LAB.R 15:00 | DX: Z79.899 Other long term (current) drug therapy (principal) | CPT/HCPCS: 80184; 81599 ==

== ENCOUNTER 2017-08-22 19:08 | Outpatient (CLI) | payer MEDICARE, BC ==
[2017-08-22 12:04] LABS: CREATININE 1.3 mg/dL (0.4-1.0)
[2017-08-22 12:08] LABS: CALCIUM 8.8 mg/dL (8.5-10.3)
== END 2017-08-22 19:09 | disposition home or self-care (01) ==
LOC: LAB.R 19:08
PROVIDERS: ATTEND Family Medicine
DX: J44.9 Chronic obstructive pulmonary disease, unspecified (principal)
CPT/HCPCS: 80048

== ENCOUNTER 2017-08-25 08:00 | Outpatient (CLI) | payer MEDICARE, BC | END 2017-08-25 08:01 | disposition home or self-care (01) | LOC: LAB.R 08:00 | DX: I50.20 Unspecified systolic (congestive) heart failure (principal); I50.9 Heart failure, unspecified | CPT/HCPCS: 83880 ==

== ENCOUNTER 2017-08-26 14:50 | Outpatient (CLI) | payer MEDICARE, BC ==
--- NOTE | 2017-08-26 16:07 | CONSULTATION NOTE ---
Palliative Care Follow Up - Referral Referring Provider: Dr. Tanya Tillman Time of Visit: 08/26/2017. 14:50 - 13:10 Referral setting: [facility] Referral Reason: Wheezing, cough - Information Sources Records reviewed: RN notes reviewed, Previous records reviewed History/Review of Systems obtained from: Patient, Nursing Exam limitations: Clinical condition (mostly will not respond to questions) - History of Present Illness Update Brief HPI Update: This is an 81-year-old woman with aphasia and R side hemiparesis as a result of a stroke this year, as well as multiple long-term comorbidities: COPD, CHF with LE edema, lupus, seizure disorder, thyroid disease, morbid obesity, and severe DJD. Nursing reported increased audible wheezing, not ameliorated by albuterol treatment. She also had a low-grade temperature yesterday of 99.2, other vital signs were normal. Today the patient is lying quietly in bed, audible wheezing continues, and she has a wet sounding sporadic ncough. Lung sounds are diminished throughout, and there are no crackles. Patient denies fever, but tends to be nonresponsive, although she is awake and alert. It is rare to hear her verbalize, although she did clearly say thank you in response to my thank you to her. On 08/23 Lasix was increased to 40mg for 3 days; then back to 20mg daily. On Prednisone was increased to 20mg daily for 3 days and was increased a second time, to 40mg daily for 5 days, starting today 08/26. She has chronic bilateral edema at 3+. I will hold off on increasing Lasix at this time; diuretics are a delicate balancing act due to her CKDIII, and her lungs have no crackles. BNP drawn on 08/25/17 is elevated at 299. Her BMP is at baseline, with increased BUN and creatinine, and GFR at 39. Chest x-ray is not feasible due to body habitus. She is afebrile and vital signs are normal. Her weight is within her baseline range. Currently it is 233.9 lbs. Social History - Living Situation Living arrangement: [facility] ([facility]) Living Situation: With caregiver(s) (Her brother in law, Musa Cueva, is her DPOA. Niece Tom Cueva is involved too.) Medications/Allergies - Medications Home Medications: Ambulatory Orders Medication Instructions Recorded Confirmed Albuterol Sulf [Ventolin Hfa 2 puffs INH Q4HR PRN 03/04/17 08/26/17 Inhaler] Ascorbic Acid [Vitamin C] 500 mg PO DAILY 03/04/17 08/26/17 Aspirin [Aspirin EC] 81 mg PO DAILY 03/04/17 08/26/17 Atorvastatin Calcium 40 mg PO DAILY 03/04/17 08/26/17 Bisacodyl Supp [Dulcolax Supp] 1 supp [place] DAILY PRN 03/04/17 08/26/17 Citalopram [CeleXA] 10 mg PO DAILY 03/04/17 08/26/17 Ferrous Gluconate 324 mg PO DAILY 03/04/17 08/26/17 Fluticasone [Flonase] 1 spray ALFONSO BID PRN 03/04/17 08/26/17 Levothyroxine Sodium 100 mcg PO DAILY 03/04/17 08/26/17 Losartan Potassium 50 mg PO BID 03/04/17 08/26/17 Metoprolol Tartrate 50 mg PO BID 03/04/17 08/26/17 Nitroglycerin [Nitrostat] 0.4 mg PO Q8HR PRN 03/04/17 08/26/17 Ranitidine HCl [Acid Control] 150 mg PO BID 03/04/17 08/26/17 Sennosides [Senna] 17.2 mg PO DAILY 03/04/17 08/26/17 Acetaminophen 1,000 mg PO BID 03/30/17 08/26/17 PHENobarbital [Phenobarbital] 129.6 mg PO ACHS 03/30/17 08/26/17 Furosemide 20 mg PO DAILY 05/05/17 08/26/17 predniSONE [Prednisone] 10 mg PO DAILY 05/05/17 08/26/17 Albuterol 1 vial NEB BID 08/26/17 08/26/17 Albuterol 1 vial NEB Q4H PRN 08/26/17 08/26/17 Mineral Oil/Petrolatum,White 1 drops OP DAILY 08/26/17 08/26/17 [Artificial Tears Eye Ointment] - Allergies Allergies/Adverse Reactions: Allergies Allergy/AdvReac Type Severity Reaction Status Date / Time captopril [From Capoten] Allergy Unknown Verified 11/07/16 06:58 carbamazepine [From Tegretol] Allergy Unknown Verified 11/07/16 06:58 cephalexin monohydrate * Allergy Unknown Verified 11/07/16 06:58 [From Keflex] ciprofloxacin [From Cipro] Allergy Unknown Verified 11/07/16 06:58 clindamycin Allergy Unknown Verified 11/07/16 06:58 codeine Allergy Respiratory Verified 11/07/16 06:58 divalproex sodium Allergy Unknown Verified 11/07/16 06:58 [From Depakote] erythromycin base Allergy Unknown Verified 11/07/16 06:58 felodipine Allergy Unknown Verified 11/07/16 06:58 hydrocodone Allergy Unknown Verified 11/07/16 06:58 hydroxychloroquine sulfate * Allergy Unknown Verified 11/07/16 06:58 [From Plaquenil] levofloxacin [From Levaquin] Allergy Unknown Verified 11/07/16 06:58 methyldopa [From Aldomet] Allergy Unknown Verified 11/07/16 06:58 metronidazole Allergy Unknown Verified 11/07/16 06:58 morphine Allergy Unknown Verified 11/07/16 06:58 Penicillins Allergy Rash Verified 11/07/16 06:58 phenytoin sodium * Allergy Unknown Verified 11/07/16 06:58 [From Dilantin] propranolol HCl * Allergy Unknown Verified 11/07/16 06:58 [From Inderal LA] Sulfa (Sulfonamide Allergy Hives Verified 11/07/16 06:58 Antibiotics) Tetracyclines Allergy Unknown Verified 11/07/16 06:58 caffeine AdvReac Headache Verified 11/07/16 06:58 chocolate flavor AdvReac Cramps Verified 11/07/16 06:58 lactose AdvReac Cramps Verified 11/07/16 06:58 nut - unspecified AdvReac Cramps Verified 11/07/16 06:58 Review of Systems - Constitutional Constitutional: reports: Weight stable (233.9 lbs on 08/25/17. Has ranged from 232 to 240 lbs since May 2017.). denies: Fever - Respiratory Respiratory: reports: Cough, Wheezing - Genitourinary Genitourinary: reports: Incontinence - Musculoskeletal Musculoskeletal: reports: Assistive devices (Wheelchair) - Neurological Neurological: reports: Focal weakness (R side hemiparesis s/p CVA) - Endocrine Endocrine: reports: Hypothyroidism - Other Findings Other Findings: Unable to obtain complete ROS due to non-responsiveness/aphasia of patient. Physical Exam - Vital Signs Temperature: 97.1 F Pulse Rate: 67 O2 Saturation: 95 Blood Pressure: 120/75 - Physical Exam General Appearance: positive: No acute distress, Alert Eyes Bilateral: positive: No lid inflammation, Conjunctivae nml, No scleral icterus ENT: positive: No signs of dehydration, Oral lesions (Crusty lesion on lower lip ) Neck: positive: Trachea midline Cardiovascular: positive: Regular rate & rhythm, No murmur Respiratory: positive: Chest non-tender, Wheezes (expiratory), Rhonchi. negative: Rales Extremities: positive: Pedal edema (+3 bilaterally) Neurologic/Psychiatric: positive: Unintelligible speech, Flat affect Palliative Care - POLST Patient has POLST: Yes POLST Status: DNR, Comfort Measures Performance Status: Dependent for all ADLs, is wheelchair-bound, requiers Darcy lift for transfers. Incontinent of bowel and bladder. - Palliative Care Discussion: Patient was alert but mostly non-responsive to my questions. Her wheezing is audible but she does not appear in respiratory distress. Increased prednisone was started this morning. [id number]/DPOA Musa Cueva was phoned but it rang through. Results - Lab Results Lab results reviewed: Yes Lab and Imaging Results: 08/25/17 BNP 299 08/22/17: Na 136 K+ 4.0 Chl 100 L Carbon dioxide 235 BUN 29 H Creatinine 1.3 H GFR 39 L Glucose 90 Calcium 8.8 Impression and Recommendations - Palliative Care Impression: This is an 81-year-old woman with numerous comorbidities, including hemiparesis and aphasia s/p CVA in 2017, COPD, CHF with lower extremity edema, lupus, seizure disorder, thyroid disease, morbid obesity, and severe DJD. She has responded in past to increased prednisone and lasix in past for COPD and CHF exacerbations. She has CKD III disease so lasix is a delicate balance. Prednisone burst has been increased and extended for 5 more days. She remains at high risk for continued decline. Comfort is the goal of care, and avoiding hospitalization. Recommendations/Counseling Done: COPD exacerbation: Albuterol not relieving wheezing symptoms. Prednisone had been increased to 20mg x 3 days, up from 10mg daily. Now it has increased a second time, to 40mg daily for 5 days, starting this morning. Lasix was increased to 40mg for 3 days, now it's back to 20mg due to risk of acute on chronic EMELY. She is CKD III. Unfeasible to take CXR due to body habitus. Chapped /crusty lips: Continue to apply vaseline to lips BID until resolved. Advanced care planning: Goal is comfort care and avoid hospitlaization. POLST is DNR and comfort measure. Follow up next week. Time Spent: 20 minutes were spent with more than 50% of the time spent on counseling, education, and coordination of care.
== END 2017-08-26 14:51 | disposition home or self-care (01) ==
LOC: PC 14:50
PROVIDERS: ATTEND Nurse Practitioner
DX: Z51.5 Encounter for palliative care (principal); J44.1 Chronic obstructive pulmonary disease with (acute) exacerbation; L98.8 Other specified disorders of the skin and subcutaneous tissue; I63.9 Cerebral infarction, unspecified; R47.01 Aphasia; G81.91 Hemiplegia, unspecified affecting right dominant side; I50.9 Heart failure, unspecified; N18.3 Chronic kidney disease, stage 3 (moderate); R60.0 Localized edema; E66.01 Morbid (severe) obesity due to excess calories; Z79.82 Long term (current) use of aspirin; Z79.52 Long term (current) use of systemic steroids; Z99.3 Dependence on wheelchair; Z66 Do not resuscitate
CPT/HCPCS: 99308

== ENCOUNTER 2017-08-30 08:00 | Outpatient (CLI) | payer MEDICARE, BC ==
[2017-08-30 12:34] LABS: CALCIUM 8.4 mg/dL (8.5-10.3); CREATININE 1.2 mg/dL (0.4-1.0)
== END 2017-08-30 08:01 | disposition home or self-care (01) ==
LOC: LAB.R 08:00
PROVIDERS: ATTEND Family Medicine
DX: N18.3 Chronic kidney disease, stage 3 (moderate) (principal); R79.89 Other specified abnormal findings of blood chemistry
CPT/HCPCS: 80048

== ENCOUNTER 2017-08-31 10:35 | Outpatient (CLI) | payer MEDICARE, BC ==
--- NOTE | 2017-08-31 16:56 | CONSULTATION NOTE ---
Palliative Care Follow Up - Referral Referring Provider: Dr Tanya Tillman Time of Visit: 08/31/2017. 10:35 - 10:55 Referral setting: [facility] (Health system) - Information Sources Records reviewed: RN notes reviewed, Previous records reviewed History/Review of Systems obtained from: Nursing Exam limitations: Clinical condition (patient does not respond to questions) - History of Present Illness Update Brief HPI Update: This is an 81-year-old woman with aphasia and R side hemiparesis as a result of a stroke last year, as well as multiple long-term comorbidities: COPD, CHF with LE edema, lupus, seizure disorder, thyroid disease, morbid obesity, and severe DJD. The patient has been having audible wheezing and coughing since last week. last week lasix was incrased to 40mg for 3 days, and prednisone was increased to 20mg for 3 days, then when wheezing did not respond, increased to 40mg daily for 5 days, first dose given on Tue. 08/26 in the morning. Her BNP draw of 08/25 is 299, but giving diuretics is delicate due to significant kidney failure. Today her wheeze sounds much improved. She still has a wet sounding cough. Lung sounds are inaudible via auscultation due to body habitus. She could have a lower respiratory infection, but running a CXR often does not provide a clear result due to her body habitus. She is allergic to an extensive list of antibiotics. She is alert and sitting up in her chair. Vital signs are stable, she appears at baseline. She only gives momentary eye contact and does not respond to my questions or assessment. Social History - Living Situation Living arrangement: long-term (Health system) Living Situation: With caregiver(s) Support System: Brother in law, Musa Cueva, is her DPOA. Niece Tom Cueva is involved too. Medications/Allergies - Medications Home Medications: Ambulatory Orders Medication Instructions Recorded Confirmed Albuterol Sulf [Ventolin Hfa 2 puffs INH Q4HR PRN 03/04/17 08/26/17 Inhaler] Ascorbic Acid [Vitamin C] 500 mg PO DAILY 03/04/17 08/26/17 Aspirin [Aspirin EC] 81 mg PO DAILY 03/04/17 08/26/17 Atorvastatin Calcium 40 mg PO DAILY 03/04/17 08/26/17 Bisacodyl Supp [Dulcolax Supp] 1 supp [place] DAILY PRN 03/04/17 08/26/17 Citalopram [CeleXA] 10 mg PO DAILY 03/04/17 08/26/17 Ferrous Gluconate 324 mg PO DAILY 03/04/17 08/26/17 Fluticasone [Flonase] 1 spray ALFONSO BID PRN 03/04/17 08/26/17 Levothyroxine Sodium 100 mcg PO DAILY 03/04/17 08/26/17 Losartan Potassium 50 mg PO BID 03/04/17 08/26/17 Metoprolol Tartrate 50 mg PO BID 03/04/17 08/26/17 Nitroglycerin [Nitrostat] 0.4 mg PO Q8HR PRN 03/04/17 08/26/17 Ranitidine HCl [Acid Control] 150 mg PO BID 03/04/17 08/26/17 Sennosides [Senna] 17.2 mg PO DAILY 03/04/17 08/26/17 Acetaminophen 1,000 mg PO BID 03/30/17 08/26/17 PHENobarbital [Phenobarbital] 129.6 mg PO ACHS 03/30/17 08/26/17 Furosemide 20 mg PO DAILY 05/05/17 08/26/17 predniSONE [Prednisone] 10 mg PO DAILY 05/05/17 08/26/17 Albuterol 1 vial NEB BID 08/26/17 08/26/17 Albuterol 1 vial NEB Q4H PRN 08/26/17 08/26/17 Mineral Oil/Petrolatum,White 1 drops OP DAILY 08/26/17 08/26/17 [Artificial Tears Eye Ointment] Azithromycin 250 mg PO DAILY MDD for 4 days, 08/31/17 08/31/17 after 1-time 500mg Azithromycin 500 mg PO ONCE MDD initial 500mg 08/31/17 08/31/17 dose, then 250mg - Allergies Allergies/Adverse Reactions: Allergies Allergy/AdvReac Type Severity Reaction Status Date / Time captopril [From Capoten] Allergy Unknown Verified 11/07/16 06:58 carbamazepine [From Tegretol] Allergy Unknown Verified 11/07/16 06:58 cephalexin monohydrate * Allergy Unknown Verified 11/07/16 06:58 [From Keflex] ciprofloxacin [From Cipro] Allergy Unknown Verified 11/07/16 06:58 clindamycin Allergy Unknown Verified 11/07/16 06:58 codeine Allergy Respiratory Verified 11/07/16 06:58 divalproex sodium Allergy Unknown Verified 11/07/16 06:58 [From Depakote] erythromycin base Allergy Unknown Verified 11/07/16 06:58 felodipine Allergy Unknown Verified 11/07/16 06:58 hydrocodone Allergy Unknown Verified 11/07/16 06:58 hydroxychloroquine sulfate * Allergy Unknown Verified 11/07/16 06:58 [From Plaquenil] levofloxacin [From Levaquin] Allergy Unknown Verified 11/07/16 06:58 methyldopa [From Aldomet] Allergy Unknown Verified 11/07/16 06:58 metronidazole Allergy Unknown Verified 11/07/16 06:58 morphine Allergy Unknown Verified 11/07/16 06:58 Penicillins Allergy Rash Verified 11/07/16 06:58 phenytoin sodium * Allergy Unknown Verified 11/07/16 06:58 [From Dilantin] propranolol HCl * Allergy Unknown Verified 11/07/16 06:58 [From Inderal LA] Sulfa (Sulfonamide Allergy Hives Verified 11/07/16 06:58 Antibiotics) Tetracyclines Allergy Unknown Verified 11/07/16 06:58 caffeine AdvReac Headache Verified 11/07/16 06:58 chocolate flavor AdvReac Cramps Verified 11/07/16 06:58 lactose AdvReac Cramps Verified 11/07/16 06:58 nut - unspecified AdvReac Cramps Verified 11/07/16 06:58 Review of Systems - Constitutional Constitutional: reports: Other (Nursing reports weight today is 222 lbs. Error? It was 233.9 lbs on 08/25 and 233.5 lbs on 08/21 and has been in the 230s for awhile.). denies: Fever, Chills, Diaphoresis - Ears, Nose & Throat Ears, Nose & Throat: denies: Nasal discharge, Nasal congestion - Respiratory Respiratory: reports: Cough. denies: Wheezing (no audible wheezing or audible via auscultation) - Genitourinary Genitourinary: reports: Incontinence - Musculoskeletal Musculoskeletal: reports: Assistive devices (wheelchair) - Neurological Neurological: reports: Focal weakness (R side hemiparesis), Slurred speech ( aphasia) - Psychiatric Psychiatric: reports: Depression - Endocrine Endocrine: reports: Hypothyroidism - Other Findings Other Findings: unable to obtain ROS due to non-responsiveness/aphasia Physical Exam - Vital Signs Temperature: 97.5 F Pulse Rate: 61 O2 Saturation: 95 (on RA) Blood Pressure: 133/81 - Physical Exam General Appearance: positive: No acute distress, Alert, Nonresponsive (does not answer questions or react) Eyes Bilateral: positive: No lid inflammation, Conjunctivae nml, No scleral icterus ENT: positive: No signs of dehydration Neck: positive: No JVD, Trachea midline Cardiovascular: positive: No murmur, Irregularly irregular Respiratory: positive: Chest non-tender, No respiratory distress, Other (unable to auscultate back of chest due to body habitus) Extremities: positive: Pedal edema (+3, right worse than left) Neurologic/Psychiatric: positive: Unintelligible speech, Flat affect Palliative Care - POLST Patient has POLST: Yes POLST Status: DNR - Palliative Care Discussion: [id number]/DPOA did not answer his phone. Patient is at baseline vis a vis not responding or reacting to questions and comments. Wheezing is no longer audible after prednisone "burst of 5 days of 40mg daily. Coug continues. Ankles are edemic. Impression and Recommendations - Palliative Care Impression: This is an 81-year-old woman with significant comorbidities, including hemiparesis and aphasia s/p CVA in 2017, COPD, CHF with lower extremity edema, lupus, seizure disorder, thyroid diesase, morbid obesity, and severe DJD. She has recent increase in wheezing and coughing, seems to have responded to prednisone burst of 40mg x 5 days, but cough remains. She may benefit from a cycle of antibiotics. BNP is elevated at 299 but using diuretics is delicate due to significant kidney disease. Recommendations/Counseling Done: COPD exacerbation: Prednisone was 20mg x 3 days (normal dosing is 10mg daily), then increased to 40mg x 5 days, and that has just completed. Lasix last week was increased to 40mg x 3 days, now back at baseline dosing of 20mg daily. Wheezing has improved, no longer audible. Cough: Start a "Z Pack": 500mg azithromycin on day one, then 250mg daily x 4 days. (She is allergic to an extensive list of most oral antibiotics.) Pharmacy issued a caution on azithromycin with citalopram and trazodone. Consulted with hospital pharmacist, he advised it's ok to give azithromycin and citalopram since dosage is low (10mg). Hold trazodone for the duration of administering azithromycin. Advanced care planning: Family has previously stated the goal is comfort care and avoiding hospitalization. I have been unsuccessful at contacting the DPOA, which is her [id number]. Time Spent: 20 minutes were spent with more than 50% of the time spent on counseling, education, and coordination of care.
== END 2017-08-31 10:36 | disposition home or self-care (01) ==
LOC: PC 10:35
PROVIDERS: ATTEND Nurse Practitioner
DX: Z51.5 Encounter for palliative care (principal); J44.1 Chronic obstructive pulmonary disease with (acute) exacerbation; R05 Cough; I69.320 Aphasia following cerebral infarction; I69.351 Hemiplegia and hemiparesis following cerebral infarction affecting right dominant side; I50.9 Heart failure, unspecified; R60.0 Localized edema; M32.9 Systemic lupus erythematosus, unspecified; G40.909 Epilepsy, unspecified, not intractable, without status epilepticus; E66.01 Morbid (severe) obesity due to excess calories; Z79.82 Long term (current) use of aspirin; Z79.52 Long term (current) use of systemic steroids; F32.9 Major depressive disorder, single episode, unspecified; Z66 Do not resuscitate
CPT/HCPCS: 99308

== ENCOUNTER 2017-11-09 14:45 | Outpatient (CLI) | payer MEDICARE, MEDICAID, BC ==
--- NOTE | 2017-11-09 17:14 | CONSULTATION NOTE ---
Palliative Care Follow Up - Referral Referring Provider: Dr Luis Alberto Bennett Time of Visit: 11/09/2017. 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 -Medical history: COPD, CHF with LE edema, lupus, seizure disorder, thyroid disease, morbid obesity, severe DJD. -Wheezing and coughing from previous visit have resolved, lung sounds are clear. -She continues on 10mg prednisone. -Edema has improved, now at 2+. -She continues on 20mg Lasix. -3-month weight loss: 7.9% (18.5 lbs) -6-month weight loss: 12.7% (31.5 lbs). See ROS for details. -She is lying in bed, calm, with no distress. She cooperated with the visit and assessment, and made eye contact. -She did appear more alert and engaged in the visit and several times attempted to verbally respond to my questions. Twice I was able to understand her. She also communicated by body language. Today is the most extensive effort she has made to verbalize with me. -She indicated that her pain levels are ok. She currently uses 1000 mg Tylenol twice daily. -Nursing reports she has been doing well and is stable, with no wheezing or respiratory symptoms. -She continues on 10mg prednisone daily, started last June to alleviate COPD symptoms since she is unable to use inhalers. -Nursing reports she does spend time in the common room, watching TV and is present for some social activities. -Her sister also lives in the facility and comes over to visit her. -Her bowel movements are very regular, no constipation. Social History - Living Situation Living arrangement: [facility] ([facility] Living Situation: With caregiver(s) Support System: Her sister also lives in long-term care at [facility]. Her [id number] is her DPOA. Niece Fiordaliza is also involved. Medications/Allergies - Medications Home Medications: Ambulatory Orders Medication Instructions Recorded Confirmed Albuterol Sulf [Ventolin Hfa 2 puffs INH Q4HR PRN 03/04/17 11/09/17 Inhaler] Ascorbic Acid [Vitamin C] 500 mg PO DAILY 03/04/17 11/09/17 Aspirin [Aspirin EC] 81 mg PO DAILY 03/04/17 11/09/17 Atorvastatin Calcium 40 mg PO DAILY 03/04/17 11/09/17 Bisacodyl Supp [Dulcolax Supp] 1 supp [place] DAILY PRN 03/04/17 11/09/17 Citalopram [CeleXA] 10 mg PO DAILY 03/04/17 11/09/17 Ferrous Gluconate 324 mg PO DAILY 03/04/17 11/09/17 Fluticasone [Flonase] 1 spray ALFONSO BID PRN 03/04/17 11/09/17 Levothyroxine Sodium 100 mcg PO DAILY 03/04/17 11/09/17 Losartan Potassium 50 mg PO BID 03/04/17 11/09/17 Metoprolol Tartrate 50 mg PO BID 03/04/17 11/09/17 Nitroglycerin [Nitrostat] 0.4 mg PO Q8HR PRN 03/04/17 11/09/17 Ranitidine HCl [Acid Control] 150 mg PO BID 03/04/17 11/09/17 Sennosides [Senna] 17.2 mg PO DAILY 03/04/17 11/09/17 Acetaminophen 1,000 mg PO BID 03/30/17 11/09/17 PHENobarbital [Phenobarbital] 129.6 mg PO ACHS 03/30/17 11/09/17 Furosemide 20 mg PO DAILY 05/05/17 11/09/17 predniSONE [Prednisone] 10 mg PO DAILY 05/05/17 11/09/17 Albuterol 1 vial NEB BID 08/26/17 11/09/17 Albuterol 1 vial NEB Q4H PRN 08/26/17 11/09/17 Mineral Oil/Petrolatum,White 1 drops OP DAILY 08/26/17 11/09/17 [Artificial Tears Eye Ointment] Fleet Enema 1 ea [place] DAILY PRN 11/09/17 11/09/17 House Bowel Program 1 ea DAILY PRN 11/09/17 11/09/17 Magnesium Hydroxide [Milk of 30 ml PO DAILY PRN 11/09/17 11/09/17 Magnesia] - Allergies Allergies/Adverse Reactions: Allergies Allergy/AdvReac Type Severity Reaction Status Date / Time captopril [From Capoten] Allergy Unknown Verified 11/07/16 06:58 carbamazepine [From Tegretol] Allergy Unknown Verified 11/07/16 06:58 cephalexin monohydrate * Allergy Unknown Verified 11/07/16 06:58 [From Keflex] ciprofloxacin [From Cipro] Allergy Unknown Verified 11/07/16 06:58 clindamycin Allergy Unknown Verified 11/07/16 06:58 codeine Allergy Respiratory Verified 11/07/16 06:58 divalproex sodium Allergy Unknown Verified 11/07/16 06:58 [From Depakote] erythromycin base Allergy Unknown Verified 11/07/16 06:58 felodipine Allergy Unknown Verified 11/07/16 06:58 hydrocodone Allergy Unknown Verified 11/07/16 06:58 hydroxychloroquine sulfate * Allergy Unknown Verified 11/07/16 06:58 [From Plaquenil] levofloxacin [From Levaquin] Allergy Unknown Verified 11/07/16 06:58 methyldopa [From Aldomet] Allergy Unknown Verified 11/07/16 06:58 metronidazole Allergy Unknown Verified 11/07/16 06:58 morphine Allergy Unknown Verified 11/07/16 06:58 Penicillins Allergy Rash Verified 11/07/16 06:58 phenytoin sodium * Allergy Unknown Verified 11/07/16 06:58 [From Dilantin] propranolol HCl * Allergy Unknown Verified 11/07/16 06:58 [From Inderal LA] Sulfa (Sulfonamide Allergy Hives Verified 11/07/16 06:58 Antibiotics) Tetracyclines Allergy Unknown Verified 11/07/16 06:58 caffeine AdvReac Headache Verified 11/07/16 06:58 chocolate flavor AdvReac Cramps Verified 11/07/16 06:58 lactose AdvReac Cramps Verified 11/07/16 06:58 nut - unspecified AdvReac Cramps Verified 11/07/16 06:58 Review of Systems - Constitutional Constitutional: reports: Weight loss (12.7% loss [31.5lbs] since 05/11/17 [6 months]. 7.9% loss [18.5 lbs] since 08/11/17 [3 months]. 2164lbs 11/06/17. 213.4 lbs 10/31/17. 224.4 lbs 10/20/17. 221.2 lbs 10/02/17. 231.3 lbs 09/01/17. 239.1 lbs . 247.9 lbs 05/11/17.) - Cardiovascular Cardiovascular: reports: Edema - Gastrointestinal Gastrointestinal: denies: Constipation - Genitourinary Genitourinary: reports: Incontinence - Musculoskeletal Musculoskeletal: reports: Assistive devices (wheelchair), Transfer issues ( requires Darcy lift) - Neurological Neurological: reports: Focal weakness (R side hemiparesis s/p CVA), Slurred speech (aphonia) - Psychiatric Psychiatric: reports: Depression - Endocrine Endocrine: reports: Hypothyroidism - Hematologic/Lymphatic Hematologic/Lymphatic: reports: Anemia (chronic) - Other Findings Other Findings: Unable to obtain ROS from patient due to aphonia. Partial ROS from staff. Physical Exam - Vital Signs Temperature: 96.4 F Pulse Rate: 59 O2 Saturation: 96 (room air) Blood Pressure: 127/65 - Physical Exam General Appearance: positive: No acute distress, Alert Eyes Bilateral: positive: No lid inflammation, Conjunctivae nml, No scleral icterus ENT: positive: No signs of dehydration, Oral lesions (lip) Neck: positive: No JVD, Trachea midline Cardiovascular: positive: Regular rate & rhythm, No murmur, No gallop Respiratory: positive: Chest non-tender, No respiratory distress, Breath sounds nml Abdomen: positive: Soft, Obese Skin: positive: No symptoms Extremities: positive: Pedal edema (2+) Neurologic/Psychiatric: positive: Flat affect Palliative Care - POLST Patient has POLST: Yes POLST Status: DNR, Comfort Measures Pain: No pain Drowsiness/Sedation: None Constipation: No Performance Status: Dependent for all ADLs, wheelchair-bound, Darcy lift for transfers, incontinent of bowel and bladder. - Palliative Care Discussion: Left message for [id number]/DPOA. Family's previously stated goals of care are comfort care and avoiding hospitalization. Impression and Recommendations - Palliative Care Impression: This is an 82-year-old woman with multiple serious comorbidities who is currently stable, without exacerbation of COPD or CHF symptoms. Palliative care will continue to monitor and will recommend transition to hospice when criteria are met. Recommendations/Counseling Done: COPD: Stable on albuterol nebulizer BID routein, prednisone 10mg daily. CHF: No SOB, ankle edema 2+ without compression hose. Continue lasix 20mg daily and monitor weights twice weekly.. Constipation: Controlled with senna 2 tabs daily. Depression: Stable, without behaviors. Continue citalopram Seizure disorder: Stable with no recent seizures. Continue phenobarbital 129.6 mg daily. R side hemiparesis s/p CVA: Pain controlled with 1,000 mg Tylenol BID. Advanced care planning: DNR and comfort care, avoid hospitalization. Follow up every 6-8 weeks and as needed. Time Spent: 30 minutes were spent with more than 50% of the time spent on counseling, education, and coordination of care.
== END 2017-11-09 14:46 | disposition home or self-care (01) ==
LOC: PC 14:45
PROVIDERS: ATTEND Nurse Practitioner
DX: Z51.5 Encounter for palliative care (principal); I69.351 Hemiplegia and hemiparesis following cerebral infarction affecting right dominant side; I69.328 Other speech and language deficits following cerebral infarction; Z79.82 Long term (current) use of aspirin; Z79.52 Long term (current) use of systemic steroids; Z99.3 Dependence on wheelchair; I50.9 Heart failure, unspecified; J44.9 Chronic obstructive pulmonary disease, unspecified; Z66 Do not resuscitate
CPT/HCPCS: 99309

== ENCOUNTER 2017-12-09 14:45 | Outpatient (CLI) | payer MEDICARE, MEDICAID, BC ==
--- NOTE | 2017-12-09 17:20 | CONSULTATION NOTE ---
Palliative Care Follow Up - Referral Referring Provider: Dr. Ivana Tillman Time of Visit: [id number] Referral setting: Nursing Home Facility (Has live at [facility] since 02/23/2017) Referral Reason: COPD Exacerbation - Information Sources Records reviewed: RN notes reviewed, Previous records reviewed History/Review of Systems obtained from: Caregiver (clinical staff) Exam limitations: Clinical condition (patient aphasic) - History of Present Illness Update Brief HPI Update: This is an 82-year-old woman with multiple comorbidities, with recent exacerbation and diagnosis of community acquired pneumonia she did receive a Z- Buzz, which he completed earlier this week, she continues to be quite tight and wheezy, and presents with a rolling productive cough. Her breath sounds are with scattered rhonchi, her O2 sats are sitting right around 90-91% on room air. She does appear quite uncomfortable. She has no crackles, or no increased lower extremity edema. Patient does have a comorbidity of CHF, her other diagnoses include lupus, seizure disorder, hypothyroidism, morbid obesity , as well as right-sided paresis following a severe stroke last year which led to her admission to [facility]. Social History - Living Situation Living arrangement: [facility] Support System: Sister live's at long term as well, brother in law and niece oversee care and provide support Medications/Allergies - Medications Home Medications: Ambulatory Orders Medication Instructions Recorded Confirmed Albuterol Sulf [Ventolin Hfa 2 puffs INH Q4HR PRN 03/04/17 12/09/17 Inhaler] Ascorbic Acid [Vitamin C] 500 mg PO DAILY 03/04/17 12/09/17 Aspirin [Aspirin EC] 81 mg PO DAILY 03/04/17 12/09/17 Atorvastatin Calcium 40 mg PO DAILY 03/04/17 12/09/17 Bisacodyl Supp [Dulcolax Supp] 1 supp SC DAILY PRN 03/04/17 12/09/17 Citalopram [CeleXA] 10 mg PO DAILY 03/04/17 12/09/17 Ferrous Gluconate 324 mg PO DAILY 03/04/17 12/09/17 Fluticasone [Flonase] 1 spray ALFONSO BID PRN 03/04/17 12/09/17 Levothyroxine Sodium 100 mcg PO DAILY 03/04/17 12/09/17 Losartan Potassium 50 mg PO BID 03/04/17 12/09/17 Metoprolol Tartrate 50 mg PO BID 03/04/17 12/09/17 Ranitidine HCl [Acid Control] 150 mg PO BID 03/04/17 12/09/17 Sennosides [Senna] 17.2 mg PO DAILY 03/04/17 12/09/17 Acetaminophen 1,000 mg PO BID 03/30/17 12/09/17 PHENobarbital [Phenobarbital] 129.6 mg PO ACHS 03/30/17 12/09/17 Furosemide 20 mg PO DAILY 05/05/17 12/09/17 predniSONE [Prednisone] 40 mg PO .DAILY FOR 5 DAYS 05/05/17 12/09/17 Albuterol 1 vial NEB Q4H PRN 08/26/17 12/09/17 Albuterol 1 vial NEB QID MDD x 7days 08/26/17 12/09/17 Mineral Oil/Petrolatum,White 1 drops OP DAILY 08/26/17 12/09/17 [Artificial Tears Eye Ointment] Fleet Enema 1 ea [place] DAILY PRN 11/09/17 12/09/17 House Bowel Program 1 ea DAILY PRN 11/09/17 12/09/17 Magnesium Hydroxide [Milk of 30 ml PO DAILY PRN 11/09/17 12/09/17 Magnesia] Guaifenesin/Dextromethorphan 20 ml PO TID MDD one week 12/09/17 12/09/17 [Tussin Dm Cough Syrup] Saccharomyces Boulardii [Florastor] 250 mg PO BID 12/09/17 12/09/17 - Allergies Allergies/Adverse Reactions: Allergies Allergy/AdvReac Type Severity Reaction Status Date / Time captopril [From Capoten] Allergy Unknown Verified 11/07/16 06:58 carbamazepine [From Tegretol] Allergy Unknown Verified 11/07/16 06:58 cephalexin monohydrate * Allergy Unknown Verified 11/07/16 06:58 [From Keflex] ciprofloxacin [From Cipro] Allergy Unknown Verified 11/07/16 06:58 clindamycin Allergy Unknown Verified 11/07/16 06:58 codeine Allergy Respiratory Verified 11/07/16 06:58 divalproex sodium Allergy Unknown Verified 11/07/16 06:58 [From Depakote] erythromycin base Allergy Unknown Verified 11/07/16 06:58 felodipine Allergy Unknown Verified 11/07/16 06:58 hydrocodone Allergy Unknown Verified 11/07/16 06:58 hydroxychloroquine sulfate * Allergy Unknown Verified 11/07/16 06:58 [From Plaquenil] levofloxacin [From Levaquin] Allergy Unknown Verified 11/07/16 06:58 methyldopa [From Aldomet] Allergy Unknown Verified 11/07/16 06:58 metronidazole Allergy Unknown Verified 11/07/16 06:58 morphine Allergy Unknown Verified 11/07/16 06:58 Penicillins Allergy Rash Verified 11/07/16 06:58 phenytoin sodium * Allergy Unknown Verified 11/07/16 06:58 [From Dilantin] propranolol HCl * Allergy Unknown Verified 11/07/16 06:58 [From Inderal LA] Sulfa (Sulfonamide Allergy Hives Verified 11/07/16 06:58 Antibiotics) Tetracyclines Allergy Unknown Verified 11/07/16 06:58 caffeine AdvReac Headache Verified 11/07/16 06:58 chocolate flavor AdvReac Cramps Verified 11/07/16 06:58 lactose AdvReac Cramps Verified 11/07/16 06:58 nut - unspecified AdvReac Cramps Verified 11/07/16 06:58 Review of Systems - Constitutional Constitutional: reports: Weight stable (212.5) - Eyes Eyes: reports: Vision loss - Ears, Nose & Throat Ears, Nose & Throat: reports: Dry mouth - Respiratory Respiratory: reports: Cough, Sputum production (loose cough), Wheezing - Gastrointestinal Gastrointestinal: reports: Good appetite - Genitourinary Genitourinary: reports: Incontinence, Other (report of vaginal bleeding/no further episodes-Dr. Tillman had contacted family to see if wanted further work up and it was declined) - Musculoskeletal Musculoskeletal: reports: Transfer issues (corky needed to transfer) - Integumentary Integumentary: reports: Other (skin tear right thigh) - Neurological Neurological: reports: General weakness, Other (right hemiplegia) - Psychiatric Psychiatric: reports: Depression - Endocrine Endocrine: reports: Hypothyroidism - Hematologic/Lymphatic Hematologic/Lymphatic: reports: Recurrent infections (dx per chest xray 12/01 LLL infiltrate taken for increase wheezing) - All Other Systems All Other Systems: reports: Reviewed and negative Physical Exam - Vital Signs Temperature: 97.4 C Pulse Rate: 74 Respiratory Rate: 18 O2 Saturation: 91 (ra @ rest) Blood Pressure: 128/64 - Physical Exam General Appearance: positive: Mild distress (with frequent rolling cough; appears fatigued) Eyes Bilateral: positive: Normal inspection ENT: positive: No signs of dehydration Neck: positive: Trachea midline. negative: Lymphadenopathy (R), Lymphadenopathy (L) Cardiovascular: positive: Regular rate & rhythm Respiratory: positive: Diminished throughout, Wheezes, Rhonchi, Other (rolling cough) Abdomen: positive: Non-tender, Soft, Nml bowel sounds, Obese Skin: positive: Pallor, Dryness, Wound (dried skin tears right thigh/no s/s infection). negative: Pressure wound Extremities: positive: No pedal edema Neurologic/Psychiatric: positive: Facial droop, Flat affect, Other (unable to participate in exam; holds my hand with her left; few meaning full yes/nos) Palliative Care - POLST Patient has POLST: Yes POLST Status: DNR, Comfort Measures Pain: No pain Tiredness/Fatigue: Severe (7-10) Drowsiness/Sedation: Moderate (4-6) - Palliative Care Discussion: Patient unable to participate in exam much more than nodding yes or no. Goals continue to be to focus on comfort, did follow-up with [id number] Musa, he was in the facility. Aware of current plan to address her respiratory symptoms and discomfort this is acceptable. Impression and Recommendations - Palliative Care Impression: This is an 82-year-old woman with multiple comorbidities, does appear to have an exacerbation of her COPD, she was diagnosed per chest x-ray with left lower lobe infiltrate, and treated with a Z-Buzz earlier in the week. Patient with her body habitus, is unable to take deep breaths, has a weak cough, And is at risk for ongoing decline. Follow-up with PCP and family, will aggressively manage her current symptoms but this does not include hospitalization. Palliative care provide ongoing support for patient and her setting, she has been seen on the service since May 2016. Recommendations/Counseling Done: 1. COPD exacerbation. Will increase prednisone to 40 mg daily 5 days, schedule albuterol nebulizer 4 times a day for 1 week, this is to assist with moving secretions. As well as schedule the Tussin 20 mils 3 times daily, to help break up cough as well. 2.Pneumonia. Patient does have an infiltrate left lower lobe. Was treated with a Z-Buzz earlier, patient though does have difficulty moving her secretions. If patient shows no improvement come Tuesday, can retry antibiotic therapy. Patient does not present with colored sputum, fever, no change in appetite at this point 3. Depression. Patient is managed on citalopram, does appear stable without any behaviors. No report of changes by staff or family, though she does have a limited life, she does seem to engage in her environment. Time Spent: 45 minutes with greater than 50% of this done in counseling and follow-up in coordination of care with clinical staff, PCP Dr. pittman, Musa alfaro DPO a, and anticipatory guidance provided
== END 2017-12-09 14:46 | disposition home or self-care (01) ==
LOC: PC 14:45
PROVIDERS: ATTEND Nurse Practitioner Adult Health
DX: Z51.5 Encounter for palliative care (principal); J44.1 Chronic obstructive pulmonary disease with (acute) exacerbation; J18.9 Pneumonia, unspecified organism; F32.9 Major depressive disorder, single episode, unspecified; I69.351 Hemiplegia and hemiparesis following cerebral infarction affecting right dominant side; R47.01 Aphasia; Z79.82 Long term (current) use of aspirin; M62.81 Muscle weakness (generalized); Z66 Do not resuscitate
CPT/HCPCS: 99310

== ENCOUNTER 2017-12-14 12:15 | Outpatient (CLI) | payer MEDICARE, MEDICAID, BC ==
--- NOTE | 2017-12-14 21:42 | CONSULTATION NOTE ---
Palliative Care Follow Up - Referral Referring Provider: Dr. Tanya Tillman Time of Visit: 1230 Referral setting: [facility] Referral Reason: COPD Exacerbaton/LLL infiltrate - Information Sources Records reviewed: Previous records reviewed History/Review of Systems obtained from: Caregiver (clinical staff) Exam limitations: Clinical condition (patient unable to communicate) - History of Present Illness Update Brief HPI Update: This is an 82-year-old woman with multiple comorbidities with recent exacerbation and diagnosis of community-acquired pneumonia with documented LLL infiltrate by chest xray, for which she received a Z-Buzz on . I had seen her 12/09 she was still quite wheezy, and had a rolling productive cough. Her O2 sats were around 90-91% on room air. I did start her on prednisone 40 mg daily with more aggressive albuterol nebs and Mucinex. Her wheezing has improved but concern continues that she still has a significant cough, is not clearing her secretions, though she remains afebrile, it is thought may be she is not responded to original treatment. She is quite fatigued with the coughing, there is many sick residents in facililty with similar symptoms. Patient is quite complex as she has very few antibiotics she is not allergic to, and particularly oral antibiotics. This provides her with few options. Social History - Living Situation Living arrangement: intermediate Medications/Allergies - Medications Home Medications: Ambulatory Orders Medication Instructions Recorded Confirmed Albuterol Sulf [Ventolin Hfa 2 puffs INH Q4HR PRN 03/04/17 12/15/17 Inhaler] Ascorbic Acid [Vitamin C] 500 mg PO DAILY 03/04/17 12/15/17 Aspirin [Aspirin EC] 81 mg PO DAILY 03/04/17 12/15/17 Atorvastatin Calcium 40 mg PO DAILY 03/04/17 12/15/17 Bisacodyl Supp [Dulcolax Supp] 1 supp ND DAILY PRN 03/04/17 12/15/17 Citalopram [CeleXA] 10 mg PO DAILY 03/04/17 12/15/17 Ferrous Gluconate 324 mg PO DAILY 03/04/17 12/15/17 Fluticasone [Flonase] 1 spray ALFONSO BID PRN 03/04/17 12/15/17 Levothyroxine Sodium 100 mcg PO DAILY 03/04/17 12/15/17 Losartan Potassium 50 mg PO BID 03/04/17 12/15/17 Metoprolol Tartrate 50 mg PO BID 03/04/17 12/15/17 Ranitidine HCl [Acid Control] 150 mg PO BID 03/04/17 12/15/17 Sennosides [Senna] 17.2 mg PO DAILY 03/04/17 12/15/17 Acetaminophen 1,000 mg PO BID 03/30/17 12/15/17 PHENobarbital [Phenobarbital] 129.6 mg PO ACHS 03/30/17 12/15/17 Furosemide 20 mg PO DAILY 05/05/17 12/15/17 predniSONE [Prednisone] 40 mg PO .DAILY 5 MORE DAYS 05/05/17 12/15/17 Albuterol 1 vial NEB Q4H PRN 08/26/17 12/15/17 Albuterol 1 vial NEB QID MDD x 7 more days 08/26/17 12/15/17 Mineral Oil/Petrolatum,White 1 drops OP DAILY 08/26/17 12/15/17 [Artificial Tears Eye Ointment] Fleet Enema 1 ea ND DAILY PRN 11/09/17 12/15/17 House Bowel Program 1 ea DAILY PRN 11/09/17 12/15/17 Magnesium Hydroxide [Milk of 30 ml PO DAILY PRN 11/09/17 12/15/17 Magnesia] Guaifenesin/Dextromethorphan 20 ml PO TID MDD one more week 12/09/17 12/15/17 [Tussin Dm Cough Syrup] Saccharomyces Boulardii [Florastor] 250 mg PO BID 12/09/17 12/15/17 Azithromycin [Zithromax] 250 mg PO DAILY MDD z pack 12/15/17 12/15/17 - Allergies Allergies/Adverse Reactions: Allergies Allergy/AdvReac Type Severity Reaction Status Date / Time captopril [From Capoten] Allergy Unknown Verified 11/07/16 06:58 carbamazepine [From Tegretol] Allergy Unknown Verified 11/07/16 06:58 cephalexin monohydrate * Allergy Unknown Verified 11/07/16 06:58 [From Keflex] ciprofloxacin [From Cipro] Allergy Unknown Verified 11/07/16 06:58 clindamycin Allergy Unknown Verified 11/07/16 06:58 codeine Allergy Respiratory Verified 11/07/16 06:58 divalproex sodium Allergy Unknown Verified 11/07/16 06:58 [From Depakote] erythromycin base Allergy Unknown Verified 11/07/16 06:58 felodipine Allergy Unknown Verified 11/07/16 06:58 hydrocodone Allergy Unknown Verified 11/07/16 06:58 hydroxychloroquine sulfate * Allergy Unknown Verified 11/07/16 06:58 [From Plaquenil] levofloxacin [From Levaquin] Allergy Unknown Verified 11/07/16 06:58 methyldopa [From Aldomet] Allergy Unknown Verified 11/07/16 06:58 metronidazole Allergy Unknown Verified 11/07/16 06:58 morphine Allergy Unknown Verified 11/07/16 06:58 Penicillins Allergy Rash Verified 11/07/16 06:58 phenytoin sodium * Allergy Unknown Verified 11/07/16 06:58 [From Dilantin] propranolol HCl * Allergy Unknown Verified 11/07/16 06:58 [From Inderal LA] Sulfa (Sulfonamide Allergy Hives Verified 11/07/16 06:58 Antibiotics) Tetracyclines Allergy Unknown Verified 11/07/16 06:58 caffeine AdvReac Headache Verified 11/07/16 06:58 chocolate flavor AdvReac Cramps Verified 11/07/16 06:58 lactose AdvReac Cramps Verified 11/07/16 06:58 nut - unspecified AdvReac Cramps Verified 11/07/16 06:58 Review of Systems - Constitutional Constitutional: reports: Fatigue - Cardiovascular Cardiovascular: reports: Edema - Respiratory Respiratory: reports: Cough (continues moist without much improvement; is fatiguing;), Wheezing (has improved), SOB at rest - Gastrointestinal Gastrointestinal: reports: Good appetite (no change). denies: Constipation - Genitourinary Genitourinary: reports: Incontinence - Musculoskeletal Musculoskeletal: reports: Limited range of motion (right sided hemiplegia;), Transfer issues (darcy lift for tranfers; difficulty related to obesity for positioning and staying on side) - Integumentary Integumentary: reports: Dryness - Neurological Neurological: reports: Other (occasional words; unclear if understanding conversation; aphasic) - Psychiatric Psychiatric: reports: Depression - All Other Systems All Other Systems: reports: Other (limited ROS) Physical Exam - Vital Signs Temperature: 97.9 C Pulse Rate: 67 Respiratory Rate: 17 O2 Saturation: 97 (ra @ rest) Blood Pressure: 126/64 - Physical Exam General Appearance: positive: Moderate distress (difficulty with coughing) Eyes Bilateral: positive: Normal inspection ENT: positive: No signs of dehydration Neck: positive: No JVD, Trachea midline Cardiovascular: positive: Regular rate & rhythm Respiratory: positive: Other (diminished in LLL; congruent with chest xray; had just had alb. tx wheezing better; rolling cough with upper airway secretions) Abdomen: positive: Soft, Obese Skin: positive: Pallor, Dryness Extremities: positive: Pedal edema (trace to 1+ bilateral; not increased), Other Neurologic/Psychiatric: positive: Weakness, Facial droop, Depressed mood/affect , Flat affect Palliative Care - POLST Patient has POLST: Yes POLST Status: DNR, Comfort Measures Performance Status: Patient totally dependent for all ADLs, including bed mobility, she is a Darcy lift in and out. She does have a tilt in space wheelchair and does require feeding. Impression and Recommendations - Palliative Care Impression: This is an 82-year-old woman who has had prolonged symptoms of cough, wheezing, confirmed community-acquired pneumonia with left lower lobe infiltrate, has completed one round of Z-Buzz, as well as prednisone. She has had some improvement in her wheezing, and tightness, but the cough and her diminished breath sounds particularly left lower lobe, have not improved. Patient has significant allergies, was only able to be treated with a Z-Buzz, unclear if she has cleared currently. Palliative care to provide evaluation and collaboration with PCP as patient is an SNF Recommendations/Counseling Done: 1.CAP;Will retreat with Z-Buzz, unfortunately patient is allergic to all medications, did follow-up from my chart Levofloxacin was on the list as well unfortunately. Will have added to allergy list. Did leave message for MOLLY, is aware of patient's acute illness, update left. Goals remain not to hospitalize, did reiterate difficulty with treatment given her allergies. 2. COPD exacerbation. The wheezing has improved, though cough remains constant and rolling. Will extend prednisone, albuterol nebs, and guaifenesin for another week. Time Spent: 30 minutes spent in evaluation and coordination with clinical staff, collaboration with PCP, and follow-up information left for her [id number].
== END 2017-12-14 12:16 | disposition home or self-care (01) ==
LOC: PC 12:15
PROVIDERS: ATTEND Nurse Practitioner Adult Health
DX: Z51.5 Encounter for palliative care (principal); J18.9 Pneumonia, unspecified organism; J44.1 Chronic obstructive pulmonary disease with (acute) exacerbation; J45.901 Unspecified asthma with (acute) exacerbation; Z79.82 Long term (current) use of aspirin; R47.01 Aphasia; G81.91 Hemiplegia, unspecified affecting right dominant side; F32.9 Major depressive disorder, single episode, unspecified; Z66 Do not resuscitate
CPT/HCPCS: 99309

== ENCOUNTER 2018-01-02 12:45 | Outpatient (CLI) | payer MEDICARE, MEDICAID, BC ==
--- NOTE | 2018-01-02 15:45 | CONSULTATION NOTE ---
Palliative Care Follow Up - Referral Referring Provider: Dr. 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 In the context of her autoimmune disease she has lupus , multiple drug allergies irritable bowel syndrome, on struggled with long-term fatigue. On 12-29-2016 she had a left intracranial hemorrhage, she now lives with the onset of right-sided weakness facial droop, as well as expressive aphasia and dysphagia. Originally when we had met had seen her at [facility], she has since now [facility]. Since this time she has had multiple exacerbations of her CHF and COPD, needing intermittent dosing of increased diuretics, and steroids. Most recently, she does appear to have more difficulty with aspiration, she is now had 3 rounds of azithromycin, and steroid boosts, with some improvement but not sustained. She was most recently treated on 12/14/17, and finished her Z-Buzz and steroid taper, and has not the last 2 or 3 days developed acute symptoms again. Her care is complicated by her multiple drug allergies, leaving as particularly with aspiration pneumonia, not adequate coverage. She does appear in somewhat distressed today, with tight wheezy cough, nonproductive. She is afebrile, but she is tacky at 110, and does appear with distress during her coughing episodes. She is holding tight to my hand, she is quite tearful, staff of only tried when dose of albuterol nebulizer, with very little effect. Patient unable to participate in a goals of care conversation, the previously in our relationship she has expressed her goal to focus on comfort, and not to extend her suffering. Social History - Living Situation Living arrangement: residential (has lived at [facility] since 02/2017. Her sister Daxa Cueva is a resident at [facility] as well, does get to see her regularly. Her MOLLY Musa Cueva, is her DPOA, but is also supported by her niece Fiordaliza Levy) Medications/Allergies - Medications Home Medications: Ambulatory Orders Medication Instructions Recorded Confirmed Albuterol Sulf [Ventolin Hfa 2 puffs INH Q4HR PRN 03/04/17 01/02/18 Inhaler] Ascorbic Acid [Vitamin C] 500 mg PO DAILY 03/04/17 01/02/18 Aspirin [Aspirin EC] 81 mg PO DAILY 03/04/17 01/02/18 Atorvastatin Calcium 40 mg PO DAILY 03/04/17 01/02/18 Bisacodyl Supp [Dulcolax Supp] 1 supp AR DAILY PRN 03/04/17 01/02/18 Citalopram [CeleXA] 10 mg PO DAILY 03/04/17 01/02/18 Ferrous Gluconate 324 mg PO DAILY 03/04/17 01/02/18 Fluticasone [Flonase] 1 spray ALFONSO BID PRN 03/04/17 01/02/18 Levothyroxine Sodium 100 mcg PO DAILY 03/04/17 01/02/18 Losartan Potassium 50 mg PO BID 03/04/17 01/02/18 Metoprolol Tartrate 50 mg PO BID 03/04/17 01/02/18 Ranitidine HCl [Acid Control] 150 mg PO BID 03/04/17 01/02/18 Sennosides [Senna] 17.2 mg PO DAILY 03/04/17 01/02/18 Acetaminophen 1,000 mg PO BID 03/30/17 01/02/18 PHENobarbital [Phenobarbital] 129.6 mg PO QPM 03/30/17 01/02/18 Furosemide 20 mg PO DAILY 05/05/17 01/02/18 predniSONE [Prednisone] 40 mg PO .DAILY 5 MORE DAYS 05/05/17 01/02/18 Albuterol 1 vial NEB Q4H PRN 08/26/17 01/02/18 Albuterol 1 vial NEB TID MDD 7 days 08/26/17 01/02/18 Mineral Oil/Petrolatum,White 1 drops OP DAILY 08/26/17 01/02/18 [Artificial Tears Eye Ointment] Fleet Enema 1 ea AR DAILY PRN 11/09/17 01/02/18 House Bowel Program 1 ea DAILY PRN 11/09/17 01/02/18 Magnesium Hydroxide [Milk of 30 ml PO DAILY PRN 11/09/17 01/02/18 Magnesia] Guaifenesin/Dextromethorphan 20 ml PO TID MDD one more week 12/09/17 01/02/18 [Tussin Dm Cough Syrup] Azithromycin [Zithromax] 250 mg PO DAILY MDD z pack 12/15/17 01/02/18 - Allergies Allergies/Adverse Reactions: Allergies Allergy/AdvReac Type Severity Reaction Status Date / Time captopril [From Capoten] Allergy Unknown Verified 11/07/16 06:58 carbamazepine [From Tegretol] Allergy Unknown Verified 11/07/16 06:58 cephalexin monohydrate * Allergy Unknown Verified 11/07/16 06:58 [From Keflex] ciprofloxacin [From Cipro] Allergy Unknown Verified 11/07/16 06:58 clindamycin Allergy Unknown Verified 11/07/16 06:58 codeine Allergy Respiratory Verified 11/07/16 06:58 divalproex sodium Allergy Unknown Verified 11/07/16 06:58 [From Depakote] erythromycin base Allergy Unknown Verified 11/07/16 06:58 felodipine Allergy Unknown Verified 11/07/16 06:58 hydrocodone Allergy Unknown Verified 11/07/16 06:58 hydroxychloroquine sulfate * Allergy Unknown Verified 11/07/16 06:58 [From Plaquenil] levofloxacin [From Levaquin] Allergy Unknown Verified 11/07/16 06:58 methyldopa [From Aldomet] Allergy Unknown Verified 11/07/16 06:58 metronidazole Allergy Unknown Verified 11/07/16 06:58 morphine Allergy Unknown Verified 11/07/16 06:58 Penicillins Allergy Rash Verified 11/07/16 06:58 phenytoin sodium * Allergy Unknown Verified 11/07/16 06:58 [From Dilantin] propranolol HCl * Allergy Unknown Verified 11/07/16 06:58 [From Inderal LA] Sulfa (Sulfonamide Allergy Hives Verified 11/07/16 06:58 Antibiotics) Tetracyclines Allergy Unknown Verified 11/07/16 06:58 caffeine AdvReac Headache Verified 11/07/16 06:58 chocolate flavor AdvReac Cramps Verified 11/07/16 06:58 lactose AdvReac Cramps Verified 11/07/16 06:58 nut - unspecified AdvReac Cramps Verified 11/07/16 06:58 Review of Systems - Constitutional Constitutional: reports: Weight stable (210) - Respiratory Respiratory: reports: Cough, Wheezing (worse when lies down) - Gastrointestinal Gastrointestinal: reports: Good appetite - Genitourinary Genitourinary: reports: Incontinence - Musculoskeletal Musculoskeletal: reports: Muscle weakness (right hemiplegia), Transfer issues ( uses corky for tranfers; takes two staff related to morbid obesity) - Integumentary Integumentary: reports: Rash (at times in groin folds) - Neurological Neurological: reports: Other (unable to talk; attempts at times) - Psychiatric Psychiatric: reports: Other (tearful through visit today) - Endocrine Endocrine: reports: Hypothyroidism - Hematologic/Lymphatic Hematologic/Lymphatic: reports: Anemia, Recurrent infections (recent chest xray with LLL infiltrate; only small improvement on z pack and steriods; no sustained ) - All Other Systems All Other Systems: reports: Other (limited ROS with staff; patient not able to participate) Physical Exam - Vital Signs Temperature: 97.5 C Pulse Rate: 110 Respiratory Rate: 20 O2 Saturation: 95 (ra @ rest) Blood Pressure: 132/72 - Physical Exam General Appearance: positive: Moderate distress (difficult with cough/wheezing) Eyes Bilateral: positive: Other (tearful through visit) ENT: positive: No signs of dehydration Neck: positive: No JVD, Trachea midline Cardiovascular: positive: Regular rate & rhythm, Tachycardia Respiratory: positive: Wheezes, Other (rolling tight cough; nonproductive). negative: Rales Abdomen: positive: Non-tender, Soft, Obese Skin: positive: Pallor Extremities: positive: No pedal edema (legs large but without swelling) Neurologic/Psychiatric: positive: Facial droop, Flat affect, Other (appears to recognize HYDRAMATIC SPECIALIST) Palliative Care - POLST Patient has POLST: Yes POLST Status: DNR Pain: No pain (Denies pain when asked) - Palliative Care Discussion: She has expressed to me in the past if she were in a [facility] or dependent and unable to speak for herself, she hoped the decisions made around her would be to let her go, and not prolong her suffering. She had shared she was Mandaen though this had not been part of her life for a long time, she believe in the after life. I met with Musa Cueva, as he was at the [facility] visiting his . We discussed my concerns that we were at place she was most likely not going to respond to the treatment ongoing, and if she is continuing to aspirate, I would expect continue decline. The family goals have been to focus on comfort, she is a DNAR/Comfort Measures only and do not want her rehospitalized. I asked if I could proceed to see if they would accept her on hospice, to improve her quality of life and keep her comfortable given I did not see her improving, or not repeating this again in the near future. He will consult with his family, but sees this as a practical direction to go as well. Impression and Recommendations - Palliative Care Impression: This is an 82-year-old woman with severe comorbidities, including today presenting with yet another exacerbation of COPD, stable CHF, morbid obesity, most likely is aspirating. She presents today with recurrent cough and wheezing , patient with limited antibiotic options, and expected to have continued decline. Palliative care to treat acute illness currently, but will move forward on transition plan to hospice. Recommendations/Counseling Done: 1. Aspiration pneumonia. Will retreat with Z-Buzz, patient allergic to all other oral options, this is not most likely going to be effective. Patient is already on a modified diet, continues to cough with eating. She is getting fed on a regular basis. 2. COPD exacerbation. Patient is quite wheezy, with inspiratory and expiratory wheezes along with her cough. She just finished her prednisone taper back to her baseline of 10 mg daily. Will go ahead and order prednisone 40 mg 5 days, followed by 20 mg 5 days and then back to baseline. Have also ordered scheduled albuterol 3 times daily as well as her cough medicine 3 times daily. 3. CHF. Patient without any lower extremity edema, no crackles. Does not appear to be retaining fluid. Certainly this could play a part in her decline, but does appear to be stable currently. 4. Advanced care planning. Patient now is being treated for the third time within 6 weeks, does not appear to have a sustained or adequate response to current regimen. With limited options, and goal for no rehospitalization, long discussion with YVES Cueva. Decision is made to move forward with hospice if accepted, he will follow up with family as well. Patient is unable to participate in decision-making, but would benefit from the extra-support and focus on comfort. Addendum: did speak with hospice regional medical director Dr. Vincent Singh, is willing to accept patient on hospice. Will go ahead and make referral for next week, have been in contact with primary care provider Dr. Ivana Tillman in agreement with current plan and will send order. Time Spent: 60 minutes with greater than 50% of this done in exam, follow-up with clinical staff, family conferencing with [id number], collaborating with PCP, and anticipatory guidance
== END 2018-01-02 12:46 | disposition home or self-care (01) ==
LOC: PC 12:45
PROVIDERS: ATTEND Nurse Practitioner Adult Health
DX: Z51.5 Encounter for palliative care (principal); J69.0 Pneumonitis due to inhalation of food and vomit; J44.1 Chronic obstructive pulmonary disease with (acute) exacerbation; I50.9 Heart failure, unspecified; I62.9 Nontraumatic intracranial hemorrhage, unspecified; I69.292 Facial weakness following other nontraumatic intracranial hemorrhage; G81.91 Hemiplegia, unspecified affecting right dominant side; R47.01 Aphasia; R13.10 Dysphagia, unspecified; M62.81 Muscle weakness (generalized); Z79.82 Long term (current) use of aspirin; Z79.52 Long term (current) use of systemic steroids; E66.01 Morbid (severe) obesity due to excess calories
CPT/HCPCS: 99310